=== PATIENT | male | born 1955 | race Caucasian/White ===

== ENCOUNTER 2016-09-21 11:47 | Inpatient (IN) | payer OTHER ==
[2016-09-21] MEDS ORDERED: MIDAZOLAM 5 MG/5 ML VIAL ONE (12:21)
[2016-09-21] MEDS ORDERED: NS 1,000 ML IV ONE (12:21)
[2016-09-21] MEDS ORDERED: ONDANSETRON HCL 4 MG/2 ML VIAL ONE (12:21)
[2016-09-21] MEDS ORDERED: FENTANYL 100 MCG/2 ML VIAL ONE (12:21)
[2016-09-21] MEDS ORDERED: PANTOPRAZOLE 40 MG VIAL IV ONE (15:00)
[2016-09-21] MEDS ORDERED: PANTOPRAZOLE SODIUM 40 MG in NS 100 ML IV SCH (15:00)
--- NOTE | 2016-09-21 15:44 | HIMOPRPT ---
DATE OF PROCEDURE: 09/21/16 PROCEDURE: EGD with biopsies INDICATIONS: 1. Nausea vomiting. 2. Weight loss. 3. CT scan of the abdomen showing significant gastric distention CONSENT: The benefits, risks, and alternatives to the procedure were discussed. The risks of bleeding, perforation and aspiration were discussed at less than 1% . Informed consent was obtained from the patient. MEDICATIONS: Fentanyl 100 mcg, Versed 10 mg, and Zofran 4 mg adjunct to sedation. DESCRIPTION OF PROCEDURE: The patient was placed in the left lateral position. The Olympus video endoscope GIFH-180 was passed with ease under direct visualization to the antrum The esophagus, stomach were examined on insertion and withdrawal of the scope. At least two passes were made. Duodenal could not be intubated. There was significant retained food and secretions in the stomach limiting the examination FINDINGS: ESOPHAGUS: Moderate circumferential esophagitis in the distal 1/3 of the esophagus inform of superficial ulcerations and erosions. Photo documentation obtained STOMACH: Significant dilatation with significant retained food and secretions limiting the examination. There were no obvious masses noted. The examination of the antrum was also limited. We were able to obtain 2 biopsies from the antrum and sent for histopathologic examination. The patient did throw up significantly during and after the test. DUODENUM: Could not be evaluated IMPRESSION: 1. Gastric outlet obstruction ?? Etiology 2. Moderate esophagitis likely related to gastric outlet obstruction PLAN: 1. Follow biopsies. I have explained the limitations of the above endoscopy and biopsies to the patient and patient's family. 2. Admit 3. IV fluids, IV Protonix, surgical consultation- I have called Dr. Aleman who has reviewed the CT scan as well. I do not believe that the above is amenable to endoscopic therapy. 4. I have also discussed above with Dr. Jenkins who was kind enough to accept the admission. cc Dr Camargo
[2016-09-21] MEDS ORDERED: BENZONATATE 100 MG PERLES PO PRN (16:15)
[2016-09-21] MEDS ORDERED: PROMETHAZINE 25 MG/ML VIAL IV PRN (16:15)
[2016-09-21] MEDS ORDERED: ACETAMINOPHEN 650 MG SUPP PR PRN (16:15)
--- NOTE | 2016-09-21 16:15 | HISTPHYS ---
- Chief Complaint nausea and vomiting, gastric outlet obstruction - History of Present Illness Mr. todd is a 60-year-old white male with history of hypertension and hyperlipidemia who is admitted from the endoscopy suite with a gastric outlet obstruction. He says his symptoms started approximately 2-3 months ago with early satiety and increasing nausea and vomiting. They have progressively worsened. They became acutely worse the last several days. His states that he has not been able to sleep for several days. He sits up leaning over a table constantly nauseous and belching. Initially thought it was reflux related but he has not gotten any relief with antacids and PPIs. He underwent endoscopy today and has had removal of approximately 2 L of gastric contents. He was found to have a severe gastric outlet obstruction of unclear etiology. Dr. Jimenez has asked us to admit him to the hospital for NG tube placement, IV fluids, and surgical consultation - Medical History Cardiac History: Reports: Hypertension, Hypercholesterolemia Respiratory History: Reports: No Significant History GI/ History: Reports: Gastroesophageal Reflux Musculoskeletal History: Reports: No Significant History Systemic History: Reports: No Significant History Neurological History: Reports: No Significant History Psychological History: Reports: No Significant History - Medictions/Allergies Allergies No Known Allergies Allergy (Verified 09/21/16 12:10) Current Medication List: Reviewed Home Medications Lisinopril 5 mg PO DAILY 09/21/16 Rosuvastatin Calcium [Crestor] 5 mg PO DAILY 09/21/16 - Family History Reports: Other (old age/longevity) - Social History Travel Outside of [place] in the Last 3 Months?: No Lives: with Spouse Smoking Status: Heavy tobacco smoker (5 or more cigarettes/day or daily pipe/ cigar) Social History: Denies: Alcohol Use - Review of Systems Yes All systems reviewed and were negative except as marked Constitutional: Loss of Appetite, Weakness - Eyes No Symptoms Reported - Ears No Symptoms Reported. negative: Drainage, Hearing Loss, Pain - Nose No Symptoms Reported. negative: Abrasion, Bleeding, Congestion - Mouth Mouth: No Symptoms Reported. negative: Pain, Drooling, Denture - Throat/Neck Pain (from ng tube). negative: Swelling - Respiratory No Symptoms Reported. negative: Cough, Shortness of Breath, Wheezing - Cardiovascular No Symptoms Reported. negative: Chest Pain, Orthopnea, Palpitations - Gastrointestinal Gastrointestinal: Nausea, Vomiting, Abdominal Pain. negative: Diarrhea, Melena , Hematochezia - Genitourinary Genitourinary: No Symptoms Reported. negative: Bleeding, Dysuria, Discharge - Neurological No Symptoms Reported. negative: Dizziness, Gait Difficulty, Seizure, Speech Difficulty - Musculoskeletal Musculoskeletal:: No Symptoms Reported. negative: Chronic low back pain, Stiffness, Gout, Weakness - Integumentary No Symptoms Reported. negative: Bruising, Rash, Wound - Allergic/Immunologic No Symptoms Reported. negative: Hives, Itching - Hematologic No Symptoms Reported. negative: Lymphadenopathy, Easy Bruising, Anemia, Past Transfusions - Endocrine No Symptoms Reported. negative: Weight Gain, Weight Loss - Psychiatric No Symptoms Reported. negative: Anxiety, Depression - Physical Exam Constitutional: No apparent distress, Alert, Well nourished, Well appearing Oriented to: Time, Person, Place Exam: Last Vital Signs Temp 97.7 F 09/21/16 12:19 Pulse 76 09/21/16 15:12 Resp 16 09/21/16 15:12 BP 130/64 09/21/16 15:12 Pulse Ox 100 09/21/16 15:12 Intake & Output 09/21/16 09/21/16 09/21/16 07:59 15:59 23:59 Patient's weight 94.801 kg - HEENT Head: Normal Eye: Normal Oropharynx: Normal - Respiratory/Cardiovascular Respiratory: Normal - CTA Cardiovascular: Normal - GI Auscultation: Absent Palpation: Normal Tenderness: Non tender - Musculoskeletal Back: Normal. negative: Abrasion, Ecchymosis Extremities: Normal. negative: Calf Tenderness, Clubbing - Integumentary Skin: Warm, Dry Lymphatics: Normal. negative: Adenopathy, Inguinal Erythema - Neurologic Memory Impaired: Normal Motor Function: Normal Cranial Nerve: Normal Cerebellar: Normal Mood Description: Normal Thought: Coherent Perception: Normal - Focused CV Perfusion Exam Vital Signs: Last Vital Signs Temp 97.7 F 09/21/16 12:19 Pulse 76 09/21/16 15:12 Resp 16 09/21/16 15:12 BP 130/64 09/21/16 15:12 Pulse Ox 100 09/21/16 15:12 - Assessment (1) Gastric outlet obstruction K31.1 - ADULT HYPERTROPHIC PYLORIC STENOSIS Acute Present on Admission: Yes (2) Nausea and vomiting R11.2 - NAUSEA WITH VOMITING, UNSPECIFIED Acute Present on Admission: Yes (3) Hypertension I10 - ESSENTIAL (PRIMARY) HYPERTENSION Acute Present on Admission: Yes (4) Hyperlipidemia E78.5 - HYPERLIPIDEMIA, UNSPECIFIED Acute Present on Admission: Yes - Plan Unable to edit problem list above due to computer malfunction. Plan 1. Admit to medical floor. 2. IV fluids and supportive care. 3. NG tube to continuous low wall suction. 4. Anti emetics. 5. IV hydralazine for blood pressure issues. 6. IV morphine for pain control 7. Surgical consultation with Dr. Aleman Case Care Discussed with: Patient, Consultants, Family, Nursing Staff, Physical Therapy, Resource Management, Teaching Dietitian
[2016-09-21] MEDS ORDERED: hydrALAZINE 20 MG/ML VIAL IV PRN (16:21)
[2016-09-21] MEDS ORDERED: Chloraseptic 6 OZ BOT PO PRN (16:24)
[2016-09-21] MEDS ORDERED: Vaccine Screening Complete SCH (17:00)
[2016-09-21 17:07] LABS: AUTOMATED BASOPHIL 0.4 % (0-2); AUTOMATED EOSINOPHIL 0.9 % (0-5); AUTOMATED LYMPH 19.4 % (17-44); AUTOMATED MONOCYTE 7.1 % (3-10); AUTOMATED NEUTROPHIL 72.2 % (45-76); MPV 10.1 fL (7.4-10.4)
[2016-09-21 17:33] LABS: BLOOD UREA NITROGEN 21 MG/DL (9-20); CALC CORRECTED 9.8 MG/DL (8.4-10.2); CALCIUM 9.6 MG/DL (8.4-10.2); CALCULATED OSMOLALITY 274 MOs/Kg (270-290); CHLORIDE 98 mEq/L (98-107); GLUCOSE 93 MG/DL (70-99); SODIUM LEVEL 141 mEq/L (137-146); TOTAL PROTEIN 7.1 G/DL (6.3-8.2)
[2016-09-21] MEDS: ENOXAPARIN 40 MG/0.4 ML PFS SQ SCH (18:08)
[2016-09-21] MEDS: NICOTINE 21 MG PATCH TOP SCH (18:09)
--- NOTE | 2016-09-21 18:26 | HISTPHYS ---
- Chief Complaint N/V - History of Present Illness 60 YO WM with history of N/V. He has had about a 16 lb weight loss in the past 2 months. Food does not agree with him and he has been having severe reflux and indigestion. No Hematemesis. He had colonoscopy in June. Had a CT which showed a grossly distended stomach. consistent with GOO. He had EGD but the pylorus was not well visualized. The po contrast however, was seen in the transverse colon. Denies fevers or chills. He did test positive for H pylori and has been treated for this. He was admitted and had NGT placed. He has had over 6 L of output today not tomention the large amount of emesis that he has had. - Medical History Cardiac History: Reports: No Significant History, Hypertension, Hypercholesterolemia Respiratory History: Reports: No Significant History GI/ History: Reports: No Significant History, Gastroesophageal Reflux Musculoskeletal History: Reports: No Significant History Systemic History: Reports: No Significant History Neurological History: Reports: No Significant History Psychological History: Reports: No Significant History. Denies: Alcoholism - Surgical History Reports: No Significant History - Medictions/Allergies Allergies No Known Allergies Allergy (Verified 09/21/16 12:10) Home Medications Lisinopril 5 mg PO DAILY 09/21/16 Rosuvastatin Calcium [Crestor] 5 mg PO DAILY 09/21/16 - Family History Reports: No Significant History, Other (old age/longevity) - Social History Travel Outside of [place] in the Last 3 Months?: No Lives: with Spouse Smoking Status: Heavy tobacco smoker (5 or more cigarettes/day or daily pipe/ cigar) Social History: Denies: Alcohol Use - Review of Systems Constitutional: Loss of Appetite, Weight loss. negative: Chills, Fever Eyes: negative: Double Vision, Pain, Photophobia Ears: negative: Hearing Loss, Tinnitus Nose: negative: Discharge, Ecchymosis Respiratory: negative: Shortness of Breath, Wheezing Cardiovascular: negative: Chest Pain, Orthopnea, Palpitations Gastrointestinal: Nausea, Vomiting, Abdominal Pain, Heartburn. negative: Melena , Hematochezia Genitourinary: negative: Bleeding, Dysuria, Frequency Neurological: negative: Headache, Seizure Musculoskeletal:: negative: Chronic low back pain, Arthritis, Muscle Pain, Joint Swelling Allergic/Immunologic: negative: Hives, Itching Hematologic: negative: Easy Bruising, Easy Bleeding Endocrine: Weight Loss, Excessive Thirst - Physical Exam Vital Signs: Initial Vitals Temperature 97.7 F 09/21/16 12:19 Pulse Rate 98 09/21/16 12:19 Respiratory Rate 18 09/21/16 12:19 Blood Pressure 132/84 09/21/16 12:19 Pulse Oxygen Saturation 94 09/21/16 12:19 Constitutional: No apparent distress, Alert Oriented to: Time, Person, Place - HEENT Head: Normal. negative: Laceration, Swelling Tympanic Membrane: negative: Perforated Respiratory: Normal - CTA. negative: Rales, Retractions, Rhonchi, Wheezes Cardiovascular: Normal. negative: Irregular, Diastolic murmur, Systolic murmur - GI Auscultation: Normal. negative: Bruit Palpation: negative: Enlarged liver, Enlarged spleen Tenderness: negative: Guarding, Rebound Wade's Sign: Negative - Musculoskeletal Back: negative: Ecchymosis, CVA Tenderness - Lab Results Laboratory Results - last 24 hr 09/21/16 09/21/16 16:50 16:50 WBC 11.3 H RBC 5.13 Hgb 15.6 Hct 47.1 MCV 92 MCH 30.4 MCHC 33.1 RDW 13.3 Plt Count 144 MPV 10.1 Neut % (Auto) 72.2 Lymph % (Auto) 19.4 [place] % (Auto) 7.1 Eos % (Auto) 0.9 Baso % (Auto) 0.4 Absolute Neuts (auto) 8.14 Absolute Lymphs (auto) 2.15 Sodium 141 Potassium 4.3 Chloride 98 Carbon Dioxide 32 Anion Gap 15 BUN 21 H Creatinine 1.10 Estimated GFR (MDRD) > 60 Glucose 93 Calculated Osmolality 274 Calcium 9.6 Corrected Calcium 9.8 Total Bilirubin 0.9 AST 17 ALT 31 Alkaline Phosphatase 92 Total Protein 7.1 Albumin 3.8 - Assessment/Plan (1) Nausea and vomiting R11.2 - NAUSEA WITH VOMITING, UNSPECIFIED Acute Present on Admission: Yes (2) Gastric outlet obstruction K31.1 - ADULT HYPERTROPHIC PYLORIC STENOSIS Acute Present on Admission: Yes (3) Hyperlipidemia E78.5 - HYPERLIPIDEMIA, UNSPECIFIED Chronic Present on Admission: Yes (4) Hypertension I10 - ESSENTIAL (PRIMARY) HYPERTENSION Acute Present on Admission: Yes Plan: Will need gastric decompression. IVF. Will discuss with GI further as he may need to have repeat EGD once stomach is completely empty. He will likely need surgical intervention. However, will need to completely rule out malignancy, lymphoma, chronic inflammation, PUD disease etc.
[2016-09-21] MEDS: NS/KCl 20 mEq 1,000 ML IV SCH (21:48)
[2016-09-22] MEDS: NS/KCl 20 mEq 1,000 ML IV SCH ×4 (02:14→18:37)
[2016-09-22] MEDS: PANTOPRAZOLE 40 MG VIAL IV SCH ×2 (05:00→18:37)
[2016-09-22 05:43] LABS: AUTOMATED BASOPHIL 0.5 % (0-2); AUTOMATED EOSINOPHIL 3.1 % (0-5); AUTOMATED LYMPH 20.8 % (17-44); AUTOMATED NEUTROPHIL 68.6 % (45-76); MPV 10.5 fL (7.4-10.4)
[2016-09-22 06:12] LABS: BLOOD UREA NITROGEN 21 MG/DL (9-20); CALC CORRECTED 9.3 MG/DL (8.4-10.2); CALCULATED OSMOLALITY 269 MOs/Kg (270-290); CHLORIDE 105 mEq/L (98-107); GLUCOSE 96 MG/DL (70-99); SODIUM LEVEL 138 mEq/L (137-146); TOTAL PROTEIN 6.8 G/DL (6.3-8.2)
[2016-09-22] MEDS ORDERED: PROPOFOL 200 MG/20 ML VIAL IV ONE (10:00)
[2016-09-22] MEDS ORDERED: LIDOCAINE 100 MG PFS IV ONE (10:00)
[2016-09-22] MEDS ORDERED: ONDANSETRON HCL 4 MG/2 ML VIAL IV ONE (10:00)
--- NOTE | 2016-09-22 15:32 | PCM.SURGRO ---
- Subjective Patient: Reports: Nausea. Denies: Vomiting - Objective / Physical Exam Vital Signs: Temperature: 97.8 F (09/22/16 12:30) HR: 68 (09/22/16 15:13)RR: 18 (09/22/16 15: 13) BP: 159/79 (09/22/16 15:13)Pulse Ox: 96 (09/22/16 15:13) General: Alert, Oriented x3, Cooperative HEENT: Normal, Anicteric Sclera Respiratory: Normal - CTA Cardiovascular: Regular rate and rhythm Gastrointestinal: Soft. negative: Distended, Tender Extremities: negative: Tenderness, Clubbing, Cyanosis Laboratory/Diagnostics Reviewed: 09/22/16 05:30 09/22/16 05:30 Laboratory Results - last 24 hr 09/21/16 09/21/16 09/22/16 16:50 16:50 05:30 WBC 11.3 H RBC 5.13 Hgb 15.6 Hct 47.1 MCV 92 MCH 30.4 MCHC 33.1 RDW 13.3 Plt Count 144 MPV 10.1 Neut % (Auto) 72.2 Lymph % (Auto) 19.4 [place] % (Auto) 7.1 Eos % (Auto) 0.9 Baso % (Auto) 0.4 Absolute Neuts (auto) 8.14 Absolute Lymphs (auto) 2.15 Sodium 141 138 Potassium 4.3 4.2 Chloride 98 105 Carbon Dioxide 32 24 Anion Gap 15 13 BUN 21 H 21 H Creatinine 1.10 1.10 Estimated GFR (MDRD) > 60 > 60 Glucose 93 96 Calculated Osmolality 274 269 L Calcium 9.6 9.0 Corrected Calcium 9.8 9.3 Total Bilirubin 0.9 1.0 AST 17 18 ALT 31 25 Alkaline Phosphatase 92 86 Total Protein 7.1 6.8 Albumin 3.8 3.7 Lipase 55 09/22/16 05:30 WBC 9.0 RBC 4.71 Hgb 14.5 Hct 42.9 MCV 91 MCH 30.8 MCHC 33.8 RDW 13.3 Plt Count 144 MPV 10.5 H Neut % (Auto) 68.6 Lymph % (Auto) 20.8 [place] % (Auto) 7.0 Eos % (Auto) 3.1 Baso % (Auto) 0.5 Absolute Neuts (auto) 6.12 Absolute Lymphs (auto) 1.80 Sodium Potassium Chloride Carbon Dioxide Anion Gap BUN Creatinine Estimated GFR (MDRD) Glucose Calculated Osmolality Calcium Corrected Calcium Total Bilirubin AST ALT Alkaline Phosphatase Total Protein Albumin Lipase - Assessment and Plan (1) Nausea and vomiting Acute R11.2 - NAUSEA WITH VOMITING, UNSPECIFIED Present on Admission: Yes (2) Gastric outlet obstruction Acute K31.1 - ADULT HYPERTROPHIC PYLORIC STENOSIS Present on Admission: Yes (3) Hyperlipidemia Chronic E78.5 - HYPERLIPIDEMIA, UNSPECIFIED Present on Admission: Yes (4) Hypertension Acute I10 - ESSENTIAL (PRIMARY) HYPERTENSION Present on Admission: Yes Plan: EGD done today. More biopsies taken. Will need to wait until path is back to decide further treatment.
--- NOTE | 2016-09-22 17:14 | SC.ANESPOS ---
Post-Anesthesia Note LOC: Fully Awake Post-Anesthesia Assessment: Awake, Returned to Baseline, Hemodynamically Stable , Pain Control Adequate Phase I & II Recovery Complete: Yes Apparent Anesthesia Complication: No : N - Vital Signs Blood Pressure: 159/79 Pulse: 68 Resp Rate: 18 O2 Sat: 96 Temp: 97.8 F
--- NOTE | 2016-09-22 17:14 | HIM.ANES ---
Anesthesia Evaluation & Plan Diagnoses: EPIGASTRIC PAIN (09/21/16) ABNORMAL WEIGHT LOSS (09/21/16) ABNORMAL FINDINGS ON DX IMAGING OF PRT DIGESTIVE TRACT (09/21/16) Consented Procedure: EGD Surgeon:: Marcos Jimenez - Focused Review of Systems Cardiac History: Yes: Hx Hypertension HEENT: Yes: Hx Hearing Impairment (sore throat) Respiratory: Yes: Hx Snoring Gastrointestinal: Yes: Hx Colonoscopy (06/2016) Neurological/Musculoskeletal: No: Hx Neurological Disorders Psychological: No Hx Mental/Emotional Disorders Smoking Status: Heavy tobacco smoker (5 or more cigarettes/day or daily pipe/ cigar) Past Social History: Denies: Alcohol Use - Focused Physical Exam NPO since: after Midnight Neck: Full Range of Motion Cardiovascular/Chest: Normal (RRR no mumurs or rubs.) Respiratory: Lungs clear. negative: Rhonchi, Wheezing Any problems with anesthesia, including nausea and vomiting?: No Other: Problem List Problem Status Onset Gastric outlet obstruction Acute Hypertension Acute Nausea and vomiting Acute Hyperlipidemia Chronic CBC/BMP/Other 09/22/16 05:30 09/22/16 05:30 Allergies Allergy/AdvReac Type Severity Reaction Status Date / Time No Known Allergies Allergy Verified 09/21/16 12:10 Home Medications Medication Instructions Recorded Last Taken Type Lisinopril/Hydrochlorothiazide 1 tab PO DAILY 09/21/16 09/20/16 History [Lisinopril-Hctz 10-12.5 mg Tab] Height and Weight Patient's height 5 ft 1 in Patient's weight 95.424 kg Weight (Calculated Kilograms) 95.424 BMI 39.7 Vital Signs Temperature 97.8 F 09/22/16 12:30 Pulse Rate 68 09/22/16 15:13 Respiratory Rate 18 09/22/16 15:13 Blood Pressure 159/79 09/22/16 15:13 Pulse Oxygen Saturation 96 09/22/16 15:13 METS - Level of Activity: Eating, Dressing, walking around house, dishwashing - Anesthetic Plan Anesthesia Type: General ASA Class: 2 -: I have examined this patient and reviewed the medical record. The patient has been assessed prior to anesthesia. Risks and benefits of anesthesia and anesthetic technique options have been discussed and all questions answered. The patient accepts the risk and desires me to proceed with the planned anesthetic.
--- NOTE | 2016-09-22 17:33 | HIMOPRPT ---
DATE OF PROCEDURE: 09/22/16 PROCEDURE: EGD with biopsies INDICATIONS: 1. Second-look endoscopy. 2. Patient had attempted EGD performed yesterday but had significant food in the stomach and had significant gastric outlet obstruction CONSENT: The benefits, risks, and alternatives to the procedure were discussed. The risks of bleeding, perforation and aspiration were discussed at less than 1% . Informed consent was obtained from the patient. MEDICATIONS: Propofol per Anesthesia DESCRIPTION OF PROCEDURE: The patient was placed in the left lateral position. The Olympus video endoscope GIFH-180 was passed with ease under direct visualization to the second portion of the stomach. The esophagus, stomach were examined on insertion and withdrawal of the scope. At least two passes were made. Duodenal could not be intubated FINDINGS: ESOPHAGUS: Moderate esophagitis involving lower 1/3 of the esophagus inform of circumferential ulcers/erosions STOMACH: Still significant food in the stomach which would limit the examination. The stomach was distended. The pylorus could not be intubated. There were no obvious masses. There was evidence of some mucosal abnormalities in the antrum inform of erythema and mucosal thickening ? Importance. Multiple Jumbo biopsies were obtained and sent for histopathologic examination. The pylorus was "pinpoint" and would not allow passage of gif H180 (luminal diameter of 9.8 mm). DUODENUM: Could not be intubated IMPRESSION: 1. Significant gastric outlet obstruction with mucosal abnormalities. No obvious exophytic masses. 2. Moderate esophagitis likely related to 1. 3. Retained food in the stomach despite of NG tube PLAN: 1. Follow biopsies. These biopsies could be suggestive of lymphoma. The endoscopic ultrasound is not available here in [facility]. If it needs to be done in future, we would send him to [facility]. 2. Continue Protonix IV 3. I have discussed the above in detail with Dr. Aleman and with patient's . I have also given them endoscopic pictures. 4. Replace NG tube
[2016-09-22] MEDS ORDERED: SIMETHICONE 80 MG TAB PO PRN (17:46)
[2016-09-22] MEDS: NICOTINE 21 MG PATCH TOP SCH (18:37)
[2016-09-22] MEDS: Metronidazole 500 mg/100 ml 500 MG/100 ML RTU IV SCH (18:37)
[2016-09-22] MEDS: ENOXAPARIN 40 MG/0.4 ML PFS SQ SCH (18:38)
--- NOTE | 2016-09-22 20:01 | GENMEDPROG ---
Chief Complaint: Less abdominal pain since NG placed and evacuation of stomach contents. Notes Reviewed: Yes Events from last night noted and discussed with Clinical Staff Current Medication List: Reviewed Currently: Reports: Tobacco Use/Hx (Smokes a half pack cigarettes a day) DVT Prophylaxis: Yes - Physical Examination Vital Signs and I&O: Last Vital Signs Temp 97.8 F 09/22/16 17:14 Pulse 68 09/22/16 17:14 Resp 18 09/22/16 17:14 BP 159/79 09/22/16 17:14 Pulse Ox 96 09/22/16 17:14 Oxygen Pulse Oxygen Saturation 96 O2 Device Room Air Oxygen Flow Rate 2 Fraction of Inspired Oxygen ( FIO2) Intake & Output 09/19/16 09/20/16 09/21/16 09/22/16 23:59 23:59 23:59 23:59 Intake Total 81 1328 Output Total 50 25 Balance 31 1303 Patient's weight 93.803 kg 95.424 kg General: Alert, Oriented x3, Cooperative HEENT: Normal, Anicteric Sclera Neck: Non-tender, Full range of motion, Normal Trachea alignment, Normal inspection (No cervical lymphadenopathy. No supraclavicular lymphadenopathy.), No Masses palpable, Supple Lymphatics: Normal (No lymph node swelling or pain.) Respiratory: Normal - CTA Cardiovascular: Regular rate and rhythm, Normal S1, No Gallops,Rubs/Murmurs, Normal S2 GI: Soft, No hepatospenomegaly, No masses, Tenderness (Mild diffuse tenderness) Extremities/Musculoskeletal: negative: Tenderness, Swelling, Edema, Clubbing, Cyanosis Skin: Warm,Dry and Intact, No rashes, No significant lesion Neurological: Strength at 5/5 X4 ext (Motor 5/5 throughout.), Normal tone, Cranial nerves 3-12 NL ( 2-12 grossly intact.) Psych/Mental Status: Appropriate, Normal Affect Lab/DI/Studies Reviewed: 09/22/16 05:30 09/22/16 05:30 Laboratory Results - last 24 hr 09/22/16 09/22/16 05:30 05:30 WBC 9.0 RBC 4.71 Hgb 14.5 Hct 42.9 MCV 91 MCH 30.8 MCHC 33.8 RDW 13.3 Plt Count 144 MPV 10.5 H Neut % (Auto) 68.6 Lymph % (Auto) 20.8 [place] % (Auto) 7.0 Eos % (Auto) 3.1 Baso % (Auto) 0.5 Absolute Neuts (auto) 6.12 Absolute Lymphs (auto) 1.80 Sodium 138 Potassium 4.2 Chloride 105 Carbon Dioxide 24 Anion Gap 13 BUN 21 H Creatinine 1.10 Estimated GFR (MDRD) > 60 Glucose 96 Calculated Osmolality 269 L Calcium 9.0 Corrected Calcium 9.3 Total Bilirubin 1.0 AST 18 ALT 25 Alkaline Phosphatase 86 Total Protein 6.8 Albumin 3.7 Lipase 55 - Assessment (1) Gastric outlet obstruction Acute K31.1 - ADULT HYPERTROPHIC PYLORIC STENOSIS Comment/Plan: EGD suggested hypertrophic pyloric stenosis. Biopsies taken and await the results. NG tube placed and feeling better with much less pain. (2) Hypertension Chronic I10 - ESSENTIAL (PRIMARY) HYPERTENSION Qualifiers: Hypertension type: essential hypertension Qualified Code(s): I10 - Essential (primary) hypertension Comment/Plan: Continuation of previous medications for hypertension. (3) Nausea and vomiting Acute R11.2 - NAUSEA WITH VOMITING, UNSPECIFIED Qualifiers: Vomiting type: unspecified Vomiting Intractability: non-intractable Qualified Code(s): R11.2 - Nausea with vomiting, unspecified (4) Hyperlipidemia Chronic E78.5 - HYPERLIPIDEMIA, UNSPECIFIED Qualifiers: Hyperlipidemia type: mixed hyperlipidemia Qualified Code(s): E78.2 - Mixed hyperlipidemia (5) Tobacco abuse Chronic Z72.0 - TOBACCO USE Comment/Plan: Discussion on cessation has taken place and will start on nicotine patch. Case Care Discussed with: Patient, Nursing Staff, Resource Management Education/Counseling Given To: Patient, Family Member Education/Counseling Given Regarding: Diagnosis, Treatment Total Time: 39 min Critical Care: No Code: 79001 (12+)
[2016-09-22] MEDS: PIPERACILLIN AND TAZOBACTAM 3.375 GM in D5W 100 ML IV SCH (20:11)
[2016-09-23] MEDS: NS/KCl 20 mEq 1,000 ML IV SCH ×4 (01:08→18:36)
[2016-09-23] MEDS: Metronidazole 500 mg/100 ml 500 MG/100 ML RTU IV SCH ×4 (01:09→18:34)
[2016-09-23] MEDS: PIPERACILLIN AND TAZOBACTAM 3.375 GM in D5W 100 ML IV SCH ×4 (03:06→21:00)
[2016-09-23] MEDS: PANTOPRAZOLE 40 MG VIAL IV SCH ×2 (03:06→17:40)
[2016-09-23] MEDS: HYDROCHLOROTHIAZIDE 12.5 MG CAP PO SCH (08:39)
[2016-09-23] MEDS: LISINOPRIL 10 MG TAB PO SCH (08:39)
[2016-09-23] MEDS ORDERED: Non-Formulary Medication ITEM (Lisinopril/Hydrochlorothiazide [Lisinopril-Hctz 10-12.5 M PO SCH (09:00)
--- NOTE | 2016-09-23 09:58 | GENMEDPROG ---
Chief Complaint: passing gas no bm ng drainage minimal 25 cc prev 24h Notes Reviewed: Yes Events from last night noted and discussed with Clinical Staff Current Medication List: Reviewed Currently: Reports: Tobacco Use/Hx (Smokes a half pack cigarettes a day) DVT Prophylaxis: Yes - Physical Examination Vital Signs and I&O: Last Vital Signs Temp 98.2 F 09/23/16 07:20 Pulse 64 09/23/16 07:20 Resp 18 09/23/16 07:20 BP 126/73 09/23/16 07:20 Pulse Ox 96 09/23/16 07:20 Oxygen Pulse Oxygen Saturation 96 O2 Device Room Air Oxygen Flow Rate 2 Fraction of Inspired Oxygen ( FIO2) Intake & Output 09/20/16 09/21/16 09/22/16 09/23/16 23:59 23:59 23:59 23:59 Intake Total 81 1448 1223 Output Total 50 625 Balance 31 823 1223 Patient's weight 93.803 kg 95.51 kg 95.481 kg General: Alert, Oriented x3, Cooperative HEENT: Normal, Anicteric Sclera Neck: Non-tender, Full range of motion, Normal Trachea alignment, Normal inspection (No cervical lymphadenopathy. No supraclavicular lymphadenopathy.), No Masses palpable, Supple Lymphatics: Normal (No lymph node swelling or pain.) Respiratory: Normal - CTA Cardiovascular: Regular rate and rhythm, Normal S1, No Gallops,Rubs/Murmurs, Normal S2 GI: Soft, No hepatospenomegaly, No masses, Tenderness (Mild diffuse tenderness) Extremities/Musculoskeletal: negative: Tenderness, Swelling, Edema, Clubbing, Cyanosis Skin: Warm,Dry and Intact, No rashes, No significant lesion Neurological: Strength at 5/5 X4 ext (Motor 5/5 throughout.), Normal tone, Cranial nerves 3-12 NL ( 2-12 grossly intact.) Psych/Mental Status: Appropriate, Normal Affect Lab/DI/Studies Reviewed: 09/22/16 05:30 09/22/16 05:30 - Assessment (1) Gastric outlet obstruction Acute K31.1 - ADULT HYPERTROPHIC PYLORIC STENOSIS Comment/Plan: EGD suggested hypertrophic pyloric stenosis. Biopsies taken show no evidence of lymphoproliferative disease. NG tube placed and feeling better with much less pain. Dr. Aleman has placed a PICC line so we can provide TPN for patient's nutrition given his hyper trophic pyloric stenosis. (2) Hypertension Chronic I10 - ESSENTIAL (PRIMARY) HYPERTENSION Qualifiers: Hypertension type: essential hypertension Qualified Code(s): I10 - Essential (primary) hypertension Comment/Plan: Continuation of previous medications for hypertension. (3) Hyperlipidemia Chronic E78.5 - HYPERLIPIDEMIA, UNSPECIFIED Qualifiers: Hyperlipidemia type: mixed hyperlipidemia Qualified Code(s): E78.2 - Mixed hyperlipidemia (4) Tobacco abuse Chronic Z72.0 - TOBACCO USE Comment/Plan: Discussion on cessation has taken place and will start on nicotine patch. (5) Nausea and vomiting Acute R11.2 - NAUSEA WITH VOMITING, UNSPECIFIED Qualifiers: Vomiting type: unspecified Vomiting Intractability: non-intractable Qualified Code(s): R11.2 - Nausea with vomiting, unspecified Case Care Discussed with: Patient, Nursing Staff, Resource Management Education/Counseling Given To: Patient Education/Counseling Given Regarding: Diagnosis Total Time: 36 min and greater than 10 minute spent on smoking cessation discussion Critical Care: No Code: 95204 (12+)
[2016-09-23] MEDS ORDERED: LIDOCAINE 1% 30 ML VIAL (PRESERVATIVE FREE) ONE (14:44)
--- NOTE | 2016-09-23 15:17 | HIMOPRPT ---
PROCEDURE: DATE OF PROCEDURE: 09/23/16 PREOPERATIVE DIAGNOSIS: Poor venous access POSTOPERATIVE DIAGNOSIS: Poor venous access PROCEDURE: Placement of Right basilic vein double lumen PICC line catheter using ultrasound guidance, catheter length 35cm SURGEON: Rohan Aleman MD. ANESTHESIA: 1% lidocaine. COMPLICATIONS: None. ESTIMATED BLOOD LOSS: Minimal. DESCRIPTION OF PROCEDURE IN DETAIL: The patient was placed supine on his hospital bed. The patient was prepped and draped in usual fashion. Using ultrasound guidance, we were able to see the right basilic vein without any difficulty. This was easily compressible. We went ahead and infiltrated the skin and subcutaneous tissue, placed a needle directly into the vein under ultrasound guidance. Images were obtained. We passed the guidewire through it and removed the needle. We placed a dilator and sheath over the guidewire. We had measured and cut the catheter to length. Then placed the catheter through the sheath and removed the sheath leaving the catheter in place. The catheter tip was in the superior vena cava. This was easily aspirated and then flushed with saline. This was sutured to the skin. The patient tolerated this well.
--- NOTE | 2016-09-23 15:20 | PCM.SURGRO ---
- Subjective Patient: Reports: No new complaints, Feels better - Objective / Physical Exam Vital Signs: Temperature: 98.2 F (09/23/16 07:20) HR: 64 (09/23/16 07:20)RR: 18 (09/23/16 07: 20) BP: 126/73 (09/23/16 07:20)Pulse Ox: 96 (09/23/16 07:20) General: Alert, Oriented x3, Cooperative Cardiovascular: Regular rate and rhythm, No Gallops,Rubs/Murmurs Gastrointestinal: Soft. negative: Distended, Tender Back: Normal. negative: Ecchymosis, CVA Tenderness Extremities: negative: Tenderness, Swelling, Edema Psych/Mental Status: Appropriate, Normal Affect, Cooperative Skin: Warm,Dry and Intact, No rashes Laboratory/Diagnostics Reviewed: 09/22/16 05:30 09/22/16 05:30 - Assessment and Plan (1) Nausea and vomiting Acute R11.2 - NAUSEA WITH VOMITING, UNSPECIFIED Present on Admission: Yes unspecified non-intractable R11.2 - Nausea with vomiting, unspecified (2) Gastric outlet obstruction Acute K31.1 - ADULT HYPERTROPHIC PYLORIC STENOSIS Present on Admission: Yes (3) Hyperlipidemia Chronic E78.5 - HYPERLIPIDEMIA, UNSPECIFIED Present on Admission: Yes mixed hyperlipidemia E78.2 - Mixed hyperlipidemia (4) Hypertension Chronic I10 - ESSENTIAL (PRIMARY) HYPERTENSION Present on Admission: Yes essential hypertension I10 - Essential (primary) hypertension Plan: Patient had PICC line placed so that we could start JUDY. Path results from first set of biopsies was discussed with him and . Will need to wait until second set of biopsies available. Continue with NGT decompression as this will help decrease gastric distension and edema.
[2016-09-23] MEDS ORDERED: CHLORHEXIDINE (HIBICLENS) 4 OZ BOTTLE TOP ONE (16:30)
--- NOTE | 2016-09-23 16:59 | PCM.GIPROG ---
Progress Note (GI) Chief Complaint: Patient feels much better. He denies having any significant abdominal pain. The NG tube is still in. He had a PICC line placed. His bili is much softer. - Physical Exam Vital Signs: Temperature: 98.2 F (09/23/16 07:20) HR: 64 (09/23/16 07:20) RR: 18 (09/23/16 07:20) BP: 126/73 (09/23/16 07:20) Pulse Ox: 96 (09/23/16 07:20) General: Alert, Oriented x3, Cooperative, No acute distress HEENT: Normal, Other (No Jaundice). negative: Pallor Cardiovascular: Normal S1, Normal S2, Other (No S3 or S4.). negative: No murmurs Gastrointestinal: Soft, Bowel Sounds (Normal), Other (No ascites.). negative: Tender, Hepatosplenomegaly Extremities: Normal pulses. negative: Swelling, Edema Skin: Warm,Dry and Intact Neurological: Normal speech, Other (No focal neurologic deficits.) Psych/Mental Status: Normal Affect, Cooperative Result Diagrams: 09/22/16 05:30 09/22/16 05:30 - Impression and Plan (1) Gastric outlet obstruction Acute K31.1 - ADULT HYPERTROPHIC PYLORIC STENOSIS Present on Admission: Yes Comment: EGD suggested hypertrophic pyloric stenosis. Biopsies taken and await the results. NG tube placed and feeling better with much less pain. (2) Nausea and vomiting Acute R11.2 - NAUSEA WITH VOMITING, UNSPECIFIED Present on Admission: Yes unspecified non-intractable R11.2 - Nausea with vomiting, unspecified (3) Hyperlipidemia Chronic E78.5 - HYPERLIPIDEMIA, UNSPECIFIED Present on Admission: Yes mixed hyperlipidemia E78.2 - Mixed hyperlipidemia (4) Hypertension Chronic I10 - ESSENTIAL (PRIMARY) HYPERTENSION Present on Admission: Yes essential hypertension I10 - Essential (primary) hypertension Comment: Continuation of previous medications for hypertension. (5) Tobacco abuse Chronic Z72.0 - TOBACCO USE Comment: Discussion on cessation has taken place and will start on nicotine patch. Plan: 1. await final pathology report. I have called pathology as well. 2. Continue IV fluids 3. IV JUDY 4. Ambulate 5. Monitor labs. 6. Continue supportive treatment for now
[2016-09-23] MEDS ORDERED: POTASSIUM CHLORIDE IV SCH ×5 (17:00)
[2016-09-23] MEDS ORDERED: FAT EMULSION 20% 250 ML IV ONE (17:00)
[2016-09-23] MEDS ORDERED: SODIUM CHLORIDE IV SCH ×5 (17:00)
[2016-09-23] MEDS ORDERED: MULTIPLE IV SCH ×5 (17:00)
[2016-09-23] MEDS ORDERED: [UNRECOGNIZED DRUG - OTHER] IV SCH ×5 (17:00)
[2016-09-23] MEDS ORDERED: VITAMINS IV SCH ×5 (17:00)
[2016-09-23] MEDS: NICOTINE 21 MG PATCH TOP SCH (18:42)
[2016-09-23] MEDS: ENOXAPARIN 40 MG/0.4 ML PFS SQ SCH (18:48)
[2016-09-24] MEDS: Metronidazole 500 mg/100 ml 500 MG/100 ML RTU IV SCH ×5 (00:25→23:50)
[2016-09-24] MEDS: PIPERACILLIN AND TAZOBACTAM 3.375 GM in D5W 100 ML IV SCH ×5 (02:08→22:29)
[2016-09-24] MEDS: NS/KCl 20 mEq 1,000 ML IV SCH ×3 (02:10→17:32)
[2016-09-24] MEDS: PANTOPRAZOLE 40 MG VIAL IV SCH ×2 (05:13→17:37)
[2016-09-24] MEDS ORDERED: DEXTROSE 25 GM/50 ML PFS IV PRN (07:40)
[2016-09-24] MEDS ORDERED: GLUCAGON 1 MG VIAL SQ PRN (07:40)
[2016-09-24] MEDS ORDERED: GLUCOSE (ORAL GEL) 15 GM TUBE PO PRN (07:40)
[2016-09-24 09:27] LABS: AUTOMATED BASOPHIL 0.3 % (0-2); AUTOMATED EOSINOPHIL 4.8 % (0-5); AUTOMATED MONOCYTE 7.1 % (3-10); AUTOMATED NEUTROPHIL 59.8 % (45-76); MPV 10.5 fL (7.4-10.4)
[2016-09-24] MEDS: LISINOPRIL 10 MG TAB PO SCH (09:27)
[2016-09-24] MEDS: HYDROCHLOROTHIAZIDE 12.5 MG CAP PO SCH (09:27)
[2016-09-24 09:30] LABS: BLOOD UREA NITROGEN 10 MG/DL (9-20); CALCIUM 7.9 MG/DL (8.4-10.2); CALCULATED OSMOLALITY 284 MOs/Kg (270-290); CHLORIDE 105 mEq/L (98-107); SODIUM LEVEL 138 mEq/L (137-146); TOTAL PROTEIN 5.7 G/DL (6.3-8.2)
[2016-09-24 09:44] LABS: GLUCOSE 435 MG/DL (70-99)
[2016-09-24] MEDS: REGULAR INSULIN 100 UNITS/ML - 3 ML VIAL IV SCH ×2 (10:12→12:15)
--- NOTE | 2016-09-24 12:11 | PCM.SURGRO ---
- Subjective Patient: Reports: No new complaints, Feels better, No Bowel Movement - Objective / Physical Exam Vital Signs: Temperature: 98.2 F (09/24/16 05:00) HR: 67 (09/24/16 09:28)RR: 17 (09/24/16 05: 00) BP: 130/77 (09/24/16 09:28)Pulse Ox: 97 (09/24/16 05:00) General: Alert, Oriented x3, Cooperative HEENT: Normal, Anicteric Sclera Respiratory: Normal - CTA. negative: Rales, Rhonchi Cardiovascular: Regular rate and rhythm, No Gallops,Rubs/Murmurs Gastrointestinal: Soft. negative: Distended, Tender Extremities: Normal pulses. negative: Tenderness, Edema, Clubbing, Cyanosis Psych/Mental Status: Normal Affect, Cooperative. negative: Agitated, Anxious Skin: Warm,Dry and Intact, No rashes Surgical wound site: Clean/Dry, Intact, Approximated, Erythema Laboratory/Diagnostics Reviewed: 09/24/16 08:52 09/24/16 08:52 Laboratory Results - last 24 hr 09/24/16 09/24/16 09/24/16 08:52 08:52 10:55 WBC 5.9 RBC 4.57 L Hgb 14.1 Hct 42.0 MCV 92 MCH 30.7 MCHC 33.4 RDW 13.2 Plt Count 129 L MPV 10.5 H Neut % (Auto) 59.8 Lymph % (Auto) 28.0 Wilkes % (Auto) 7.1 Eos % (Auto) 4.8 Baso % (Auto) 0.3 Absolute Neuts (auto) 3.48 Absolute Lymphs (auto) 1.65 Sodium 138 Potassium 4.4 Chloride 105 Carbon Dioxide 23 Anion Gap 14 BUN 10 Creatinine 1.00 Estimated GFR (MDRD) > 60 Glucose 435 H* POC Capillary Glucose 53 L Calculated Osmolality 284 Calcium 7.9 L Corrected Calcium 9.0 Phosphorus 3.1 Magnesium 1.90 Total Bilirubin 0.4 AST 14 L ALT 27 Alkaline Phosphatase 62 Total Protein 5.7 L Albumin 2.9 L 09/24/16 10:56 WBC RBC Hgb Hct MCV MCH MCHC RDW Plt Count MPV Neut % (Auto) Lymph % (Auto) Wilkes % (Auto) Eos % (Auto) Baso % (Auto) Absolute Neuts (auto) Absolute Lymphs (auto) Sodium Potassium Chloride Carbon Dioxide Anion Gap BUN Creatinine Estimated GFR (MDRD) Glucose POC Capillary Glucose 57 L Calculated Osmolality Calcium Corrected Calcium Phosphorus Magnesium Total Bilirubin AST ALT Alkaline Phosphatase Total Protein Albumin - Assessment and Plan (1) Nausea and vomiting Acute R11.2 - NAUSEA WITH VOMITING, UNSPECIFIED Present on Admission: Yes unspecified non-intractable R11.2 - Nausea with vomiting, unspecified (2) Gastric outlet obstruction Acute K31.1 - ADULT HYPERTROPHIC PYLORIC STENOSIS Present on Admission: Yes (3) Hyperlipidemia Chronic E78.5 - HYPERLIPIDEMIA, UNSPECIFIED Present on Admission: Yes mixed hyperlipidemia E78.2 - Mixed hyperlipidemia (4) Hypertension Chronic I10 - ESSENTIAL (PRIMARY) HYPERTENSION Present on Admission: Yes essential hypertension I10 - Essential (primary) hypertension Plan: Path reports discussed with patient and his . This has not shown any malignancy. It does remain suspicious for lymphoma. We will arrange for PET scan. May need laparoscopy and further tissue sampling.
[2016-09-24] MEDS: REGULAR INSULIN 100 UNITS/ML - 3 ML VIAL SQ SCH ×3 (12:14→23:49)
--- NOTE | 2016-09-24 12:23 | PCM.GIPROG ---
Progress Note (GI) Chief Complaint: Patient feels much better overall. Denies having any significant abdominal pain. The NG tube is still in. The NG drainage is not accurate since patient has been drinking liquids as well. Denies having any abdominal pain The biopsies were negative for any lymphomas. However, the biopsies did show intestinal metaplasia. There were negative for H pylori. - Physical Exam Vital Signs: Temperature: 98.2 F (09/24/16 05:00) HR: 67 (09/24/16 09:28) RR: 17 (09/24/16 05:00) BP: 130/77 (09/24/16 09:28) Pulse Ox: 97 (09/24/16 05:00) General: Alert, Oriented x3, Cooperative, No acute distress HEENT: Normal, Other (No Jaundice). negative: Pallor Cardiovascular: Normal S1, Normal S2, Other (No S3 or S4.). negative: No murmurs Gastrointestinal: Soft, Bowel Sounds (Normal), Other (No ascites.). negative: Tender, Hepatosplenomegaly Extremities: Normal pulses. negative: Swelling, Edema Skin: Warm,Dry and Intact Neurological: Normal speech, Other (No focal neurologic deficits.) Psych/Mental Status: Normal Affect, Cooperative Result Diagrams: 09/24/16 08:52 09/24/16 08:52 - Impression and Plan (1) Gastric outlet obstruction Acute K31.1 - ADULT HYPERTROPHIC PYLORIC STENOSIS Present on Admission: Yes (2) Nausea and vomiting Acute R11.2 - NAUSEA WITH VOMITING, UNSPECIFIED Present on Admission: Yes unspecified non-intractable R11.2 - Nausea with vomiting, unspecified (3) Hyperlipidemia Chronic E78.5 - HYPERLIPIDEMIA, UNSPECIFIED Present on Admission: Yes mixed hyperlipidemia E78.2 - Mixed hyperlipidemia (4) Hypertension Chronic I10 - ESSENTIAL (PRIMARY) HYPERTENSION Present on Admission: Yes essential hypertension I10 - Essential (primary) hypertension Comment: Continuation of previous medications for hypertension. (5) Tobacco abuse Chronic Z72.0 - TOBACCO USE Comment: Discussion on cessation has taken place and will start on nicotine patch. Plan: 1. agree with JUDY 2. I have discussed with Dr. Aleman 3. Ambulate 4. Check LDH 5. PET scan. 6. May need laparoscopy with biopsies
[2016-09-24] MEDS ORDERED: SODIUM CHLORIDE IV ONE ×6 (15:00)
[2016-09-24] MEDS ORDERED: CALCIUM GLUCONATE IV ONE ×6 (15:00)
[2016-09-24] MEDS ORDERED: POTASSIUM CHLORIDE IV ONE ×6 (15:00)
[2016-09-24] MEDS ORDERED: [UNRECOGNIZED DRUG - OTHER] IV ONE ×6 (15:00)
[2016-09-24] MEDS: NICOTINE 21 MG PATCH TOP SCH (15:57)
[2016-09-24] MEDS: FAT EMULSION 20% 250 ML IV SCH (16:54)
[2016-09-24] MEDS: ENOXAPARIN 40 MG/0.4 ML PFS SQ SCH (17:45)
--- NOTE | 2016-09-24 18:16 | GENMEDPROG ---
Chief Complaint: Disconnected from suction and developed gastric discuss attention requiring reconnection and copious output. Notes Reviewed: Yes Events from last night noted and discussed with Clinical Staff Current Medication List: Reviewed Currently: Reports: Tobacco Use/Hx (Smokes a half pack cigarettes a day) DVT Prophylaxis: Yes - Physical Examination Vital Signs and I&O: Last Vital Signs Temp 97.6 F 09/24/16 13:20 Pulse 70 09/24/16 13:20 Resp 20 09/24/16 13:20 BP 136/76 09/24/16 13:20 Pulse Ox 95 09/24/16 13:20 Oxygen Pulse Oxygen Saturation 95 O2 Device Room Air Oxygen Flow Rate 2 Fraction of Inspired Oxygen ( FIO2) Intake & Output 09/21/16 09/22/16 09/23/16 09/24/16 23:59 23:59 23:59 23:59 Intake Total 81 1448 2985 2053 Output Total 50 876 225 9176 Balance 31 823 2485 -447 Patient's weight 93.803 kg 95.51 kg 95.481 kg 96.7 kg General: Alert, Oriented x3, Cooperative, No acute distress HEENT: Normal (Normocephalic, atraumatic;EOMI.Sclera white, Nares patent, without discharge or bleeding. No oropharyngeal lesions or erythema. Mucous membranes are dry.) Neck: Non-tender, Full range of motion, Normal Trachea alignment, Normal inspection (No cervical lymphadenopathy. No supraclavicular lymphadenopathy.), No Masses palpable, Supple Lymphatics: Normal (No lymph node swelling or pain.) Respiratory: Normal - CTA (Clear to auscultation bilaterally. No wheezing, rales , rhonchi. Chest wall movements are symmetric. No use of accessory muscles to breathe.) Cardiovascular: Regular rate and rhythm (No bradycardia or tachycardia), Normal S1, No Gallops,Rubs/Murmurs, Normal S2, Good Pedal Pulses (DP pulses 2+ bilaterally) GI: Normal bowel sounds (normal active sounds), No hepatospenomegaly, No masses , Tenderness. negative: Soft (Slightly Distended and tender abdomen) Extremities/Musculoskeletal: Normal pulses. negative: Swelling, Edema Skin: Warm,Dry and Intact Neurological: Strength at 5/5 X4 ext (Motor 5/5 throughout.), Normal tone, Cranial nerves 3-12 NL ( 2-12 grossly intact.) Psych/Mental Status: Other (Depressed) - Assessment (1) Gastric outlet obstruction Acute K31.1 - ADULT HYPERTROPHIC PYLORIC STENOSIS Comment/Plan: Discuss with Dr. Aleman and concern is that he has some type of GI lymphoma that is going to require surgery. Patient now getting TPN and family is upset that all of it can not be run in through the same PICC line. They also informed me that he has to get an inpatient PET scan which I am not aware can be done on an inpatient basis. (2) Hypertension Chronic I10 - ESSENTIAL (PRIMARY) HYPERTENSION Qualifiers: Hypertension type: essential hypertension Qualified Code(s): I10 - Essential (primary) hypertension Comment/Plan: Continuation of previous medications for hypertension. (3) Hyperlipidemia Chronic E78.5 - HYPERLIPIDEMIA, UNSPECIFIED Qualifiers: Hyperlipidemia type: mixed hyperlipidemia Qualified Code(s): E78.2 - Mixed hyperlipidemia (4) Tobacco abuse Chronic Z72.0 - TOBACCO USE Comment/Plan: Discussion on cessation has taken place and will start on nicotine patch. (5) Nausea and vomiting Acute R11.2 - NAUSEA WITH VOMITING, UNSPECIFIED Qualifiers: Vomiting type: unspecified Vomiting Intractability: non-intractable Qualified Code(s): R11.2 - Nausea with vomiting, unspecified Comment/Plan: Related to his gastric outlet obstruction. Case Care Discussed with: Patient, Nursing Staff Education/Counseling Given To: Patient Education/Counseling Given Regarding: Diagnosis Total Time: 38 min Critical Care: No Code: 13901 (12+)
[2016-09-25] MEDS: NS/KCl 20 mEq 1,000 ML IV SCH ×3 (04:08→10:53)
[2016-09-25] MEDS: PANTOPRAZOLE 40 MG VIAL IV SCH ×2 (04:08→16:32)
[2016-09-25] MEDS: PIPERACILLIN AND TAZOBACTAM 3.375 GM in D5W 100 ML IV SCH ×4 (04:09→22:32)
[2016-09-25] MEDS: Metronidazole 500 mg/100 ml 500 MG/100 ML RTU IV SCH ×3 (06:30→17:48)
[2016-09-25] MEDS: REGULAR INSULIN 100 UNITS/ML - 3 ML VIAL SQ SCH ×3 (06:32→16:52)
[2016-09-25] MEDS: HYDROCHLOROTHIAZIDE 12.5 MG CAP PO SCH (08:06)
[2016-09-25] MEDS: LISINOPRIL 10 MG TAB PO SCH (08:06)
[2016-09-25 08:48] LABS: AUTOMATED BASOPHIL 0.4 % (0-2); AUTOMATED EOSINOPHIL 4.7 % (0-5); AUTOMATED LYMPH 33.8 % (17-44); AUTOMATED MONOCYTE 7.6 % (3-10); AUTOMATED NEUTROPHIL 53.5 % (45-76); MPV 10.3 fL (7.4-10.4)
[2016-09-25 09:03] LABS: BLOOD UREA NITROGEN 10 MG/DL (9-20); CALCIUM 8.3 MG/DL (8.4-10.2); CALCULATED OSMOLALITY 275 MOs/Kg (270-290); CHLORIDE 106 mEq/L (98-107); GLUCOSE 311 MG/DL (70-99); SODIUM LEVEL 137 mEq/L (137-146)
--- NOTE | 2016-09-25 09:58 | GENMEDPROG ---
Chief Complaint: ng draining no abdominal pain Notes Reviewed: Yes Events from last night noted and discussed with Clinical Staff Current Medication List: Reviewed Currently: Reports: Tobacco Use/Hx (Smokes a half pack cigarettes a day) DVT Prophylaxis: Yes - Physical Examination Vital Signs and I&O: Last Vital Signs Temp 98.7 F 09/25/16 06:35 Pulse 61 09/25/16 06:35 Resp 18 09/25/16 06:35 BP 128/78 09/25/16 06:35 Pulse Ox 95 09/25/16 06:35 Oxygen Pulse Oxygen Saturation 95 O2 Device Room Air Oxygen Flow Rate 2 Fraction of Inspired Oxygen ( FIO2) Intake & Output 09/22/16 09/23/16 09/24/16 09/25/16 23:59 23:59 23:59 23:59 Intake Total 1448 2985 2869 2082 Output Total 063 312 3641 475 Balance 823 5535 -656 1600 Patient's weight 95.51 kg 95.481 kg 96.7 kg 96.7 kg General: Alert, Oriented x3, Cooperative, No acute distress HEENT: Normal (Normocephalic, atraumatic;EOMI.Sclera white, Nares patent, without discharge or bleeding. No oropharyngeal lesions or erythema. Mucous membranes are dry.) Neck: Non-tender, Full range of motion, Normal Trachea alignment, Normal inspection (No cervical lymphadenopathy. No supraclavicular lymphadenopathy.), No Masses palpable, Supple Lymphatics: Normal (No lymph node swelling or pain.) Respiratory: Normal - CTA (Clear to auscultation bilaterally. No wheezing, rales , rhonchi. Chest wall movements are symmetric. No use of accessory muscles to breathe.) Cardiovascular: Regular rate and rhythm (No bradycardia or tachycardia), Normal S1, No Gallops,Rubs/Murmurs, Normal S2, Good Pedal Pulses (DP pulses 2+ bilaterally) GI: Normal bowel sounds (normal active sounds), Soft (Slightly Distended), Non tender, No hepatospenomegaly, No masses Extremities/Musculoskeletal: Normal pulses. negative: Swelling, Edema Skin: Warm,Dry and Intact, No rashes, No breakdown, No significant lesion Neurological: Strength at 5/5 X4 ext (Motor 5/5 throughout.), Normal tone, Cranial nerves 3-12 NL ( 2-12 grossly intact.) Psych/Mental Status: Appropriate, Other (Depressed) Lab/DI/Studies Reviewed: 09/25/16 08:18 09/25/16 08:18 Laboratory Results - last 24 hr 09/24/16 09/24/16 09/24/16 10:55 10:56 12:11 WBC RBC Hgb Hct MCV MCH MCHC RDW Plt Count MPV Neut % (Auto) Lymph % (Auto) Hitchcock % (Auto) Eos % (Auto) Baso % (Auto) Absolute Neuts (auto) Absolute Lymphs (auto) Sodium Potassium Chloride Carbon Dioxide Anion Gap BUN Creatinine Estimated GFR (MDRD) Glucose POC Capillary Glucose 53 L 57 L 161 H Calculated Osmolality Calcium Phosphorus Magnesium Lactate Dehydrogenase Triglycerides 09/24/16 09/24/16 09/25/16 16:02 21:22 06:20 WBC RBC Hgb Hct MCV MCH MCHC RDW Plt Count MPV Neut % (Auto) Lymph % (Auto) Hitchcock % (Auto) Eos % (Auto) Baso % (Auto) Absolute Neuts (auto) Absolute Lymphs (auto) Sodium Potassium Chloride Carbon Dioxide Anion Gap BUN Creatinine Estimated GFR (MDRD) Glucose POC Capillary Glucose 78 101 H 105 H Calculated Osmolality Calcium Phosphorus Magnesium Lactate Dehydrogenase Triglycerides 09/25/16 09/25/16 09/25/16 08:18 08:18 08:18 WBC 5.8 RBC 4.51 L Hgb 13.7 L Hct 41.1 L MCV 91 MCH 30.3 MCHC 33.2 RDW 13.2 Plt Count 121 L MPV 10.3 Neut % (Auto) 53.5 Lymph % (Auto) 33.8 Hitchcock % (Auto) 7.6 Eos % (Auto) 4.7 Baso % (Auto) 0.4 Absolute Neuts (auto) 3.07 Absolute Lymphs (auto) 1.91 Sodium 137 Potassium 4.0 Chloride 106 Carbon Dioxide 24 Anion Gap 11 BUN 10 Creatinine 1.00 Estimated GFR (MDRD) > 60 Glucose 311 H POC Capillary Glucose Calculated Osmolality 275 Calcium 8.3 L Phosphorus 3.4 Magnesium 1.80 Lactate Dehydrogenase 289 L Triglycerides 92 - Assessment (1) Gastric outlet obstruction Acute K31.1 - ADULT HYPERTROPHIC PYLORIC STENOSIS Comment/Plan: Gastric outlet obstruction apparently has not improving and will need surgery per Dr. Aleman. Concern is generated that he has a gastrointestinal lymphoma causing this obstructive process. I advise the family that once he has surgery, deeper tissues will be sampled, and get a better idea of what's going on here. Family is all in favor of this. (2) Hypertension Chronic I10 - ESSENTIAL (PRIMARY) HYPERTENSION Qualifiers: Hypertension type: essential hypertension Qualified Code(s): I10 - Essential (primary) hypertension Comment/Plan: Continuation of previous medications for hypertension. (3) Hyperlipidemia Chronic E78.5 - HYPERLIPIDEMIA, UNSPECIFIED Qualifiers: Hyperlipidemia type: mixed hyperlipidemia Qualified Code(s): E78.2 - Mixed hyperlipidemia (4) Tobacco abuse Chronic Z72.0 - TOBACCO USE Comment/Plan: Discussion on cessation has taken place and will start on nicotine patch. (5) Nausea and vomiting Acute R11.2 - NAUSEA WITH VOMITING, UNSPECIFIED Qualifiers: Vomiting type: unspecified Vomiting Intractability: non-intractable Qualified Code(s): R11.2 - Nausea with vomiting, unspecified Comment/Plan: Related to his gastric outlet obstruction. (6) Hyperglycemia Acute R73.9 - HYPERGLYCEMIA, UNSPECIFIED Comment/Plan: Not sure how new this is but he has had blood sugars in the 300's but when given insulin to control it he became hypoglycemic. Checking urine microalbumin and glycohemoglobin. Case Care Discussed with: Patient, Family, Nursing Staff Education/Counseling Given To: Patient, Family Member Education/Counseling Given Regarding: Diagnosis Total Time: 38 min Critical Care: No Code: 59241 (12+)
--- NOTE | 2016-09-25 11:56 | PCM.SURGRO ---
- Subjective Patient: Reports: No new complaints - Objective / Physical Exam Vital Signs: Temperature: 98.7 F (09/25/16 06:35) HR: 61 (09/25/16 06:35)RR: 18 (09/25/16 06: 35) BP: 128/78 (09/25/16 06:35)Pulse Ox: 95 (09/25/16 06:35) General: Alert, Oriented x3, Cooperative HEENT: Normal Respiratory: Normal - CTA Cardiovascular: Regular rate and rhythm, No Gallops,Rubs/Murmurs Gastrointestinal: Soft. negative: Distended Back: Normal Extremities: Normal pulses Psych/Mental Status: Appropriate Skin: Warm,Dry and Intact Surgical wound site: Clean/Dry, Intact, Approximated Lymphatics: Normal, Adenopathy Laboratory/Diagnostics Reviewed: 09/25/16 08:18 09/25/16 08:18 Laboratory Results - last 24 hr 09/24/16 09/24/16 09/24/16 12:11 16:02 21:22 WBC RBC Hgb Hct MCV MCH MCHC RDW Plt Count MPV Neut % (Auto) Lymph % (Auto) [place] % (Auto) Eos % (Auto) Baso % (Auto) Absolute Neuts (auto) Absolute Lymphs (auto) Sodium Potassium Chloride Carbon Dioxide Anion Gap BUN Creatinine Estimated GFR (MDRD) Glucose POC Capillary Glucose 161 H 78 101 H Calculated Osmolality Calcium Phosphorus Magnesium Lactate Dehydrogenase Triglycerides 09/25/16 09/25/16 09/25/16 06:20 08:18 08:18 WBC 5.8 RBC 4.51 L Hgb 13.7 L Hct 41.1 L MCV 91 MCH 30.3 MCHC 33.2 RDW 13.2 Plt Count 121 L MPV 10.3 Neut % (Auto) 53.5 Lymph % (Auto) 33.8 [place] % (Auto) 7.6 Eos % (Auto) 4.7 Baso % (Auto) 0.4 Absolute Neuts (auto) 3.07 Absolute Lymphs (auto) 1.91 Sodium 137 Potassium 4.0 Chloride 106 Carbon Dioxide 24 Anion Gap 11 BUN 10 Creatinine 1.00 Estimated GFR (MDRD) > 60 Glucose 311 H POC Capillary Glucose 105 H Calculated Osmolality 275 Calcium 8.3 L Phosphorus 3.4 Magnesium 1.80 Lactate Dehydrogenase Triglycerides 92 09/25/16 09/25/16 08:18 11:31 WBC RBC Hgb Hct MCV MCH MCHC RDW Plt Count MPV Neut % (Auto) Lymph % (Auto) [place] % (Auto) Eos % (Auto) Baso % (Auto) Absolute Neuts (auto) Absolute Lymphs (auto) Sodium Potassium Chloride Carbon Dioxide Anion Gap BUN Creatinine Estimated GFR (MDRD) Glucose POC Capillary Glucose 107 H Calculated Osmolality Calcium Phosphorus Magnesium Lactate Dehydrogenase 289 L Triglycerides - Assessment and Plan (1) Nausea and vomiting Acute R11.2 - NAUSEA WITH VOMITING, UNSPECIFIED Present on Admission: Yes unspecified non-intractable R11.2 - Nausea with vomiting, unspecified (2) Gastric outlet obstruction Acute K31.1 - ADULT HYPERTROPHIC PYLORIC STENOSIS Present on Admission: Yes (3) Hyperlipidemia Chronic E78.5 - HYPERLIPIDEMIA, UNSPECIFIED Present on Admission: Yes mixed hyperlipidemia E78.2 - Mixed hyperlipidemia (4) Hypertension Chronic I10 - ESSENTIAL (PRIMARY) HYPERTENSION Present on Admission: Yes essential hypertension I10 - Essential (primary) hypertension Plan: Informed that PET scan cannot be done as inpatient and would not be available until the . As we do need to have a tissue diagnosis, we will go ahead and plan on laparoscopy and multiple biopsies. We would also go ahead and place feeding tube to enable enteral feeds at that time. Patient agreeable with plan.
[2016-09-25] MEDS ORDERED: [UNRECOGNIZED DRUG - OTHER] IV ONE ×7 (12:00)
[2016-09-25] MEDS ORDERED: SODIUM CHLORIDE IV ONE ×7 (12:00)
[2016-09-25] MEDS ORDERED: POTASSIUM CHLORIDE IV ONE ×7 (12:00)
[2016-09-25] MEDS ORDERED: MAGNESIUM SULFATE IV ONE ×7 (12:00)
--- NOTE | 2016-09-25 12:48 | PCM.GIPROG ---
Progress Note (GI) Chief Complaint: Patient with gastric outlet obstruction due to unknown reasons. No obvious gastric cancers. Suspected lymphoma since patient did have positive H pylori antibody. The biopsies were negative for H pylori. I have reviewed Dr. Aleman's note and have extensively discussed with the patient and patient's family. Patient feels better with the NG tube. He denies having any abdominal pain. - Physical Exam Vital Signs: Temperature: 98.7 F (09/25/16 06:35) HR: 61 (09/25/16 06:35) RR: 18 (09/25/16 06:35) BP: 128/78 (09/25/16 06:35) Pulse Ox: 95 (09/25/16 06:35) General: Alert, Oriented x3, Cooperative, No acute distress HEENT: Normal, Other (No Jaundice). negative: Pallor Cardiovascular: Normal S1, Normal S2, Other (No S3 or S4.). negative: No murmurs Gastrointestinal: Soft, Bowel Sounds (Normal), Other (No ascites.). negative: Tender, Hepatosplenomegaly Extremities: Normal pulses. negative: Swelling, Edema Skin: Warm,Dry and Intact Neurological: Normal speech, Other (No focal neurologic deficits.) Psych/Mental Status: Normal Affect, Cooperative Result Diagrams: 09/25/16 08:18 09/25/16 08:18 - Impression and Plan (1) Gastric outlet obstruction Acute K31.1 - ADULT HYPERTROPHIC PYLORIC STENOSIS Present on Admission: Yes (2) Nausea and vomiting Acute R11.2 - NAUSEA WITH VOMITING, UNSPECIFIED Present on Admission: Yes unspecified non-intractable R11.2 - Nausea with vomiting, unspecified Comment: Related to his gastric outlet obstruction. (3) Hyperlipidemia Chronic E78.5 - HYPERLIPIDEMIA, UNSPECIFIED Present on Admission: Yes mixed hyperlipidemia E78.2 - Mixed hyperlipidemia (4) Hypertension Chronic I10 - ESSENTIAL (PRIMARY) HYPERTENSION Present on Admission: Yes essential hypertension I10 - Essential (primary) hypertension Comment: Continuation of previous medications for hypertension. (5) Tobacco abuse Chronic Z72.0 - TOBACCO USE Comment: Discussion on cessation has taken place and will start on nicotine patch. Plan: 1. proceed with the laparoscopy with biopsies and feeding tubes as planned by Dr. Aleman 2. Continue IV fluids for now 3. Continue TPN 4. Monitor labs 5. Will follow along
[2016-09-25] MEDS: FAT EMULSION 20% 250 ML IV SCH (16:28)
[2016-09-25] MEDS: NICOTINE 21 MG PATCH TOP SCH (16:36)
[2016-09-25] MEDS: ENOXAPARIN 40 MG/0.4 ML PFS SQ SCH (17:48)
[2016-09-26] MEDS: REGULAR INSULIN 100 UNITS/ML - 3 ML VIAL SQ SCH ×4 (00:50→16:59)
[2016-09-26] MEDS: Metronidazole 500 mg/100 ml 500 MG/100 ML RTU IV SCH ×4 (00:50→21:21)
[2016-09-26] MEDS: NS/KCl 20 mEq 1,000 ML IV SCH ×3 (00:51→17:00)
[2016-09-26] MEDS: PANTOPRAZOLE 40 MG VIAL IV SCH ×2 (03:10→16:55)
[2016-09-26] MEDS: PIPERACILLIN AND TAZOBACTAM 3.375 GM in D5W 100 ML IV SCH ×4 (04:27→22:32)
[2016-09-26] MEDS: HYDROCHLOROTHIAZIDE 12.5 MG CAP PO SCH (07:18)
[2016-09-26] MEDS: LISINOPRIL 10 MG TAB PO SCH (07:18)
[2016-09-26 07:23] LABS: AUTOMATED BASOPHIL 0.6 % (0-2); AUTOMATED EOSINOPHIL 5.2 % (0-5); AUTOMATED LYMPH 30.4 % (17-44); AUTOMATED MONOCYTE 8.2 % (3-10); AUTOMATED NEUTROPHIL 55.6 % (45-76); MPV 10.1 fL (7.4-10.4)
[2016-09-26 07:59] LABS: BLOOD UREA NITROGEN 10 MG/DL (9-20); CALCIUM 8.3 MG/DL (8.4-10.2); CALCULATED OSMOLALITY 266 MOs/Kg (270-290); CHLORIDE 107 mEq/L (98-107); GLUCOSE 112 MG/DL (70-99); SODIUM LEVEL 138 mEq/L (137-146)
[2016-09-26] MEDS ORDERED: [UNRECOGNIZED DRUG - OTHER] IV SCH (09:00)
[2016-09-26] MEDS ORDERED: FENTANYL 250 MCG/5 ML VIAL IV ONE (10:00)
[2016-09-26] MEDS ORDERED: GLYCOPYRROLATE 1 MG VIAL IM ONE (10:00)
[2016-09-26] MEDS ORDERED: LIDOCAINE 4% 5 ML AMPULE NEB ONE (10:00)
[2016-09-26] MEDS ORDERED: ROCURONIUM 50 MG/5 ML VIAL IV ONE (10:00)
[2016-09-26] MEDS ORDERED: ONDANSETRON HCL 4 MG/2 ML VIAL IV ONE (10:00)
[2016-09-26] MEDS ORDERED: NEOSTIGMINE 1 MG/1 ML (1:1000) INJ 10 ML MDV IM ONE (10:00)
[2016-09-26] MEDS ORDERED: MIDAZOLAM 2 MG/2 ML VIAL IV ONE (10:00)
[2016-09-26] MEDS ORDERED: SUCCINYLCHOLINE 20 MG/1 ML INJ 10 ML MDV IV ONE (10:00)
[2016-09-26] MEDS ORDERED: PROPOFOL 200 MG/20 ML VIAL IV ONE (10:00)
[2016-09-26] MEDS ORDERED: FENTANYL 100 MCG/2 ML VIAL IV PRN ×2 (10:45)
[2016-09-26] MEDS ORDERED: hydrALAZINE 20 MG/ML VIAL IV PRN (10:45)
[2016-09-26] MEDS ORDERED: HYDROmorphone 1 MG INJECTION IV PRN ×2 (10:45)
[2016-09-26] MEDS ORDERED: MEPERIDINE 25 MG/ML TUBEX IV PRN (10:45)
[2016-09-26] MEDS ORDERED: ONDANSETRON HCL 4 MG/2 ML VIAL IV PRN (10:45)
[2016-09-26] MEDS ORDERED: LABETALOL 20 MG/4 ML SYRINGE IV PRN (10:45)
[2016-09-26] MEDS ORDERED: ONDANSETRON HCL 4 MG ODT TAB PO PRN (10:45)
[2016-09-26] MEDS ORDERED: BUPIVACAINE 0.25% 30 ML VIAL ONE (10:58)
[2016-09-26] MEDS ORDERED: MAGNESIUM SULFATE IV ONE ×7 (11:00)
[2016-09-26] MEDS ORDERED: SODIUM CHLORIDE IV ONE ×7 (11:00)
[2016-09-26] MEDS ORDERED: [UNRECOGNIZED DRUG - OTHER] IV ONE ×7 (11:00)
[2016-09-26] MEDS ORDERED: POTASSIUM CHLORIDE IV ONE ×7 (11:00)
--- NOTE | 2016-09-26 11:01 | SC.ANESPOS ---
Post-Anesthesia Note LOC: [place] on Calling Post-Anesthesia Assessment: Awake, Returned to Baseline, Hemodynamically Stable , Pain Control Adequate Phase I & II Recovery Complete: Yes Apparent Anesthesia Complication: No : N - Vital Signs Blood Pressure: 137/78 Pulse: 72 Resp Rate: 16 O2 Sat: 98 Temp: 97.1 F
--- NOTE | 2016-09-26 11:05 | HIM.ANES ---
Anesthesia Evaluation & Plan Diagnoses: EPIGASTRIC PAIN (09/21/16) ABNORMAL WEIGHT LOSS (09/21/16) ABNORMAL FINDINGS ON DX IMAGING OF PRT DIGESTIVE TRACT (09/21/16) Consented Procedure: EGD Surgeon:: Marcos Jimenez - Focused Review of Systems Cardiac History: Yes: Hx Hypertension HEENT: Yes: Hx Hearing Impairment (sore throat) Respiratory: Yes: Hx Snoring Gastrointestinal: Yes: Hx Colonoscopy (06/2016), Other (Gastric outlet obstruction/NG in place) Neurological/Musculoskeletal: No: Hx Neurological Disorders Psychological: No Hx Mental/Emotional Disorders Smoking Status: Heavy tobacco smoker (5 or more cigarettes/day or daily pipe/ cigar) Past Social History: Denies: Alcohol Use - Focused Physical Exam NPO since: admission Mallampati: Class III Neck: Full Range of Motion Dental: Normal - no significant findings Cardiovascular/Chest: Normal Respiratory: Lungs clear Any problems with anesthesia, including nausea and vomiting?: No Any relatives with a history of Malignant Hyperthermia?: No Does patient have a history of Malignant Hyperthermia?: No Beta Sylvester given (if appropriate): N/A Other: Problem List Problem Status Onset Gastric outlet obstruction Acute Hyperglycemia Acute Nausea and vomiting Acute Hyperlipidemia Chronic Hypertension Chronic Tobacco abuse Chronic CBC/BMP/Other 09/26/16 07:01 09/26/16 07:01 Allergies Allergy/AdvReac Type Severity Reaction Status Date / Time No Known Allergies Allergy Verified 09/21/16 12:10 Home Medications Medication Instructions Recorded Last Taken Type Lisinopril/Hydrochlorothiazide 1 tab PO DAILY 09/21/16 09/20/16 History [Lisinopril-Hctz 10-12.5 mg Tab] Height and Weight Patient's height 6 ft 1 in Patient's weight 210 lb 1 oz Weight (Calculated Kilograms) 95.283 BMI 28.1 Vital Signs Temperature 97.1 F L 09/26/16 11:01 Pulse Rate 72 09/26/16 11:01 Respiratory Rate 16 09/26/16 11:01 Blood Pressure 137/78 09/26/16 11:01 Pulse Oxygen Saturation 98 09/26/16 11:01 METS - Level of Activity: Eating, Dressing, walking around house, dishwashing - Anesthetic Plan Anesthesia Type: General ASA Class: 2 -: I have examined this patient and reviewed the medical record. The patient has been assessed prior to anesthesia. Risks and benefits of anesthesia and anesthetic technique options have been discussed and all questions answered. The patient accepts the risk and desires me to proceed with the planned anesthetic.
[2016-09-26] MEDS ORDERED: HYDROmorphone 1 MG INJECTION ONE ×2 (14:18→14:54)
[2016-09-26] MEDS ORDERED: HYDROmorphone 1 MG INJECTION IV ONE (14:42)
--- NOTE | 2016-09-26 15:41 | SC.ANESPOS ---
Post-Anesthesia Note LOC: Fully Awake Post-Anesthesia Assessment: Awake, Returned to Baseline, Hemodynamically Stable , Pain Control Adequate Phase I & II Recovery Complete: Yes Apparent Anesthesia Complication: No : N PACU Discharge Time: 15:20 - Vital Signs Blood Pressure: 130/68 Pulse: 56 Resp Rate: 16 O2 Sat: 98 Temp: 97.3 F - Comments Anesthesia Discharge Time Report Time 15:20
[2016-09-26] MEDS: NICOTINE 21 MG PATCH TOP SCH (15:43)
[2016-09-26] MEDS: FAT EMULSION 20% 250 ML IV SCH (16:37)
--- NOTE | 2016-09-26 16:56 | GENMEDPROG ---
Note Attempted to see patient x2. He was not in his room both times. Will evaluate tomorrow. He has been in the operating room all day for surgery on his pyloric outlet obstruction.
[2016-09-26] MEDS: MORPHINE 2 MG/ML INJECTION IV PRN ×2 (18:02→22:32)
--- NOTE | 2016-09-26 18:18 | HIMOPRPT ---
[id number] POSTOPERATIVE DIAGNOSES: Same PROCEDURES: Laparoscopy, LN biopsy, Placement of G-Tube and J-tube. SURGEON: Rohan Aleman MD ANESTHESIA: GET COMPLICATIONS: None. ESTIMATED BLOOD LOSS: <10cc OPERATIVE NOTE: Patient was taken to the operating room and placed supine on the operating room table. After induction of anesthesia, he was draped and prepped in the usual fashion. Time-out was taken patient was re-identified and procedure verified. An infraumbilical incision was then made and an Optiview trocar was placed. The abdomen was insufflated with CO2 until a pressure of 15 mm Hg was achieved. 2 5 mm ports were placed in the left abdomen. An 11 mm port was placed in the epigastric region. By alternating between all these ports we able to divide the gastrocolic ligament using the Harmonic scalpel. We then identified the lymph nodes that had been seen on CT scan. Using careful dissection with the Harmonic scalpel enabled the removal of lymph node and sent this off fresh for evaluation. The area remained hemostatic. The liver was smooth without any nodularities. The stomach was nondistended and appeared soft pliable. At the pylorus, this area was quite firm. This was more firm up around the anterior and superior aspect. Opted to do a trance wall core biopsy of this area. This was done without difficulties. Two small cores were taken and these were passed off. Sites remained hemostatic. No hematoma was present. We then went ahead and placed a gastrostomy tube. Vicryl sutures were placed on the anterior gastric wall and brought out percutaneously using [place] suture Passer. Then placed a needle directly into the stomach and passed a guidewire through it. We had picked the site of the left upper quadrant port/trochar through which to do this. The port was removed leaving the site open. Utilizing dilators were able to dilate the opening and then were able to place a 24 [place] gastrostomy tube. Balloon was insufflated and then we pulled up on the stay sutures bringing the wall up against the abdominal wall. These were tied down and the gastrostomy tube was buttressed down and secured. We found a segment in the jejunum approximately 20 cm from the ligament [place]. We placed a small 16 Israeli jejunostomy tube in a likewise manner. Sutures were utilized the suspend the small bowel. A needle was placed in and then a guidewire through the needle. The needle was removed. Then using sequential dilators were able to place the catheter into the small bowel. The balloon was insufflated the sutures were lifted up against the abdominal wall these were tied down without difficulties. Then irrigated the abdominal cavity suctioned out the irrigation removed the remaining ports. Large port site was closed using 0 Vicryl sutures. Skin edges were approximated using skin delaney. Patient tolerated this well sponge, needle, instrument counts were all correct.
[2016-09-26] MEDS: ONDANSETRON HCL 4 MG/2 ML VIAL IV PRN (18:23)
[2016-09-26] MEDS ORDERED: MORPHINE 2 MG/ML INJECTION ONE (19:33)
[2016-09-26] MEDS: ENOXAPARIN 40 MG/0.4 ML PFS SQ SCH (19:46)
[2016-09-27] MEDS: REGULAR INSULIN 100 UNITS/ML - 3 ML VIAL SQ SCH ×3 (01:28→13:11)
[2016-09-27] MEDS: MORPHINE 2 MG/ML INJECTION IV PRN ×7 (03:22→22:23)
[2016-09-27] MEDS: NS/KCl 20 mEq 1,000 ML IV SCH ×3 (03:23→23:53)
[2016-09-27] MEDS: Metronidazole 500 mg/100 ml 500 MG/100 ML RTU IV SCH ×4 (03:23→22:23)
[2016-09-27] MEDS: PANTOPRAZOLE 40 MG VIAL IV SCH ×2 (03:23→15:46)
[2016-09-27] MEDS: PIPERACILLIN AND TAZOBACTAM 3.375 GM in D5W 100 ML IV SCH ×4 (04:45→23:35)
[2016-09-27] MEDS ORDERED: MAGNESIUM SULFATE IV ONE ×12 (05:00→11:00)
[2016-09-27] MEDS ORDERED: SODIUM CHLORIDE IV ONE ×12 (05:00→11:00)
[2016-09-27] MEDS ORDERED: POTASSIUM CHLORIDE IV ONE ×12 (05:00→11:00)
[2016-09-27] MEDS ORDERED: [UNRECOGNIZED DRUG - OTHER] IV ONE ×5 (05:00)
[2016-09-27 07:08] LABS: AUTOMATED BASOPHIL 0.3 % (0-2); AUTOMATED EOSINOPHIL 2.9 % (0-5); AUTOMATED LYMPH 24.3 % (17-44); AUTOMATED MONOCYTE 6.3 % (3-10); AUTOMATED NEUTROPHIL 66.2 % (45-76); MPV 10.8 fL (7.4-10.4)
[2016-09-27 07:49] LABS: BLOOD UREA NITROGEN 10 MG/DL (9-20); CALCIUM 8.1 MG/DL (8.4-10.2); CALCULATED OSMOLALITY 264 MOs/Kg (270-290); CHLORIDE 106 mEq/L (98-107); GLUCOSE 118 MG/DL (70-99); SODIUM LEVEL 137 mEq/L (137-146)
[2016-09-27] MEDS ORDERED: NS 50 ML IV ONE (09:00)
[2016-09-27] MEDS ORDERED: [UNRECOGNIZED DRUG - OTHER] IV ONE ×7 (11:00)
[2016-09-27] MEDS: HYDROCHLOROTHIAZIDE 12.5 MG CAP PO SCH (11:25)
[2016-09-27] MEDS: LISINOPRIL 10 MG TAB PO SCH (11:25)
[2016-09-27 12:39] VITALS: BMI 27.8
--- NOTE | 2016-09-27 14:12 | PCM.SURGRO ---
- Subjective Patient: Reports: Still having pain, No Bowel Movement. Denies: Diarrhea, Nausea, Shortness of breath - Objective / Physical Exam Vital Signs: Temperature: 98.4 F (09/27/16 13:54) HR: 70 (09/27/16 13:54)RR: 18 (09/27/16 13: 54) BP: 138/71 (09/27/16 13:54)Pulse Ox: 96 (09/27/16 13:54) General: Alert, Oriented x3, Cooperative HEENT: Normal, EOMI, Anicteric Sclera Respiratory: Normal - CTA. negative: Rales, Retractions, Wheezes Cardiovascular: Regular rate and rhythm, No Gallops,Rubs/Murmurs Gastrointestinal: Soft, Tender. negative: Guarding, Firm Back: Normal. negative: Ecchymosis, CVA Tenderness Extremities: negative: Swelling, Edema, Clubbing, Cyanosis Psych/Mental Status: Cooperative. negative: Confabulating, Confused Skin: Warm,Dry and Intact, No rashes Surgical wound site: Clean/Dry, Intact, Approximated. negative: Erythema Laboratory/Diagnostics Reviewed: 09/27/16 06:00 09/27/16 06:00 Laboratory Results - last 24 hr 09/25/16 09/26/16 09/26/16 08:18 04:55 14:27 WBC RBC Hgb Hct MCV MCH MCHC RDW Plt Count MPV Neut % (Auto) Lymph % (Auto) [place] % (Auto) Eos % (Auto) Baso % (Auto) Absolute Neuts (auto) Absolute Lymphs (auto) Sodium Potassium Chloride Carbon Dioxide Anion Gap BUN Creatinine Estimated GFR (MDRD) Glucose POC Capillary Glucose 118 H Calculated Osmolality Calcium Magnesium Prealbumin 15 Ur Random Microalbumin 8.7 09/26/16 09/27/16 09/27/16 16:47 01:03 05:51 WBC RBC Hgb Hct MCV MCH MCHC RDW Plt Count MPV Neut % (Auto) Lymph % (Auto) [place] % (Auto) Eos % (Auto) Baso % (Auto) Absolute Neuts (auto) Absolute Lymphs (auto) Sodium Potassium Chloride Carbon Dioxide Anion Gap BUN Creatinine Estimated GFR (MDRD) Glucose POC Capillary Glucose 109 H 104 H 118 H Calculated Osmolality Calcium Magnesium Prealbumin Ur Random Microalbumin 09/27/16 09/27/16 09/27/16 06:00 06:00 11:00 WBC 7.8 RBC 4.45 L Hgb 13.7 L Hct 40.2 L MCV 90 MCH 30.7 MCHC 34.1 RDW 13.4 Plt Count 127 L MPV 10.8 H Neut % (Auto) 66.2 Lymph % (Auto) 24.3 [place] % (Auto) 6.3 Eos % (Auto) 2.9 Baso % (Auto) 0.3 Absolute Neuts (auto) 5.15 Absolute Lymphs (auto) 1.87 Sodium 137 Potassium 3.7 Chloride 106 Carbon Dioxide 23 Anion Gap 12 BUN 10 Creatinine 0.90 Estimated GFR (MDRD) > 60 Glucose 118 H POC Capillary Glucose 79 Calculated Osmolality 264 L Calcium 8.1 L Magnesium 1.80 Prealbumin Ur Random Microalbumin - Assessment and Plan (1) Nausea and vomiting Acute R11.2 - NAUSEA WITH VOMITING, UNSPECIFIED Present on Admission: Yes unspecified non-intractable R11.2 - Nausea with vomiting, unspecified (2) Gastric outlet obstruction Acute K31.1 - ADULT HYPERTROPHIC PYLORIC STENOSIS Present on Admission: Yes (3) Hyperlipidemia Chronic E78.5 - HYPERLIPIDEMIA, UNSPECIFIED Present on Admission: Yes mixed hyperlipidemia E78.2 - Mixed hyperlipidemia (4) Hypertension Chronic I10 - ESSENTIAL (PRIMARY) HYPERTENSION Present on Admission: Yes essential hypertension I10 - Essential (primary) hypertension Plan: S/P G-Tube and J-tube placement. Will clamp NGT today and see if he tolerates this well. Will arrange for him to give feeds via J-tube after discharge home. Try IV Tylenol for pain today. Path pending.
[2016-09-27] MEDS ORDERED: Acetaminophen, Intravenous 1,000 MG/100 ML IVBOT IV ONE (14:30)
[2016-09-27] MEDS ORDERED: Pharmacy Discontinue All Previous Acetaminophen Orders SCH (15:00)
--- NOTE | 2016-09-27 15:45 | GENMEDPROG ---
Subjective Note: Patient still with some discomfort. Lying very still in the bed. He is pleasant cooperative and conversational. Notes Reviewed: Yes Events from last night noted and discussed with Clinical Staff Current Medication List: Reviewed Currently: Reports: Tobacco Use/Hx (Smokes a half pack cigarettes a day), Abdominal Pain. Denies: SOB, Diarrhea, Nausea and Vomiting DVT Prophylaxis: Yes - Physical Examination Vital Signs and I&O: Last Vital Signs Temp 98.4 F 09/27/16 13:54 Pulse 70 09/27/16 13:54 Resp 18 09/27/16 13:54 BP 138/71 09/27/16 13:54 Pulse Ox 96 09/27/16 13:54 Oxygen Pulse Oxygen Saturation 96 O2 Device Room Air Oxygen Flow Rate 2 Fraction of Inspired Oxygen ( 100 FIO2) Intake & Output 09/24/16 09/25/16 09/26/16 09/27/16 23:59 23:59 23:59 23:59 Intake Total 2869 3365 2591 1874 Output Total 3250 2275 1920 2055 Balance -381 1090 671 -181 Patient's weight 96.7 kg 96.7 kg 95.283 kg 95.906 kg General: Alert, Oriented x3, Cooperative HEENT: Normal, EOMI, Anicteric Sclera Lymphatics: Normal (No lymph node swelling or pain.) Respiratory: Normal - CTA. negative: Rales, Retractions, Wheezes Cardiovascular: Regular rate and rhythm, No Gallops,Rubs/Murmurs GI: Normal bowel sounds (normal active sounds), Soft (non-distended), Non tender , No hepatospenomegaly, No masses Extremities/Musculoskeletal: negative: Swelling, Edema, Clubbing, Cyanosis Skin: Warm,Dry and Intact, No rashes Neurological: Strength at 5/5 X4 ext (Motor 5/5 throughout.), Normal tone, Cranial nerves 3-12 NL ( 2-12 grossly intact.) Psych/Mental Status: Cooperative. negative: Confabulating, Confused Lab/DI/Studies Reviewed: Laboratory Results - last 24 hr 09/25/16 09/26/16 09/26/16 08:18 04:55 16:47 WBC RBC Hgb Hct MCV MCH MCHC RDW Plt Count MPV Neut % (Auto) Lymph % (Auto) [place] % (Auto) Eos % (Auto) Baso % (Auto) Absolute Neuts (auto) Absolute Lymphs (auto) Sodium Potassium Chloride Carbon Dioxide Anion Gap BUN Creatinine Estimated GFR (MDRD) Glucose POC Capillary Glucose 109 H Calculated Osmolality Calcium Magnesium Prealbumin 15 Ur Random Microalbumin 8.7 09/27/16 09/27/16 09/27/16 01:03 05:51 06:00 WBC RBC Hgb Hct MCV MCH MCHC RDW Plt Count MPV Neut % (Auto) Lymph % (Auto) [place] % (Auto) Eos % (Auto) Baso % (Auto) Absolute Neuts (auto) Absolute Lymphs (auto) Sodium 137 Potassium 3.7 Chloride 106 Carbon Dioxide 23 Anion Gap 12 BUN 10 Creatinine 0.90 Estimated GFR (MDRD) > 60 Glucose 118 H POC Capillary Glucose 104 H 118 H Calculated Osmolality 264 L Calcium 8.1 L Magnesium 1.80 Prealbumin Ur Random Microalbumin 09/27/16 09/27/16 06:00 11:00 WBC 7.8 RBC 4.45 L Hgb 13.7 L Hct 40.2 L MCV 90 MCH 30.7 MCHC 34.1 RDW 13.4 Plt Count 127 L MPV 10.8 H Neut % (Auto) 66.2 Lymph % (Auto) 24.3 [place] % (Auto) 6.3 Eos % (Auto) 2.9 Baso % (Auto) 0.3 Absolute Neuts (auto) 5.15 Absolute Lymphs (auto) 1.87 Sodium Potassium Chloride Carbon Dioxide Anion Gap BUN Creatinine Estimated GFR (MDRD) Glucose POC Capillary Glucose 79 Calculated Osmolality Calcium Magnesium Prealbumin Ur Random Microalbumin - Assessment (1) Gastric outlet obstruction Acute K31.1 - ADULT HYPERTROPHIC PYLORIC STENOSIS Comment/Plan: Patient status post surgery for gastric outlet obstruction with placement of PEG tube. Await pathology results. (2) Nausea and vomiting Acute R11.2 - NAUSEA WITH VOMITING, UNSPECIFIED Qualifiers: Vomiting type: unspecified Vomiting Intractability: non-intractable Qualified Code(s): R11.2 - Nausea with vomiting, unspecified Comment/Plan: Related to his gastric outlet obstruction. Improved after surgery. (3) Hypertension Chronic I10 - ESSENTIAL (PRIMARY) HYPERTENSION Qualifiers: Hypertension type: essential hypertension Qualified Code(s): I10 - Essential (primary) hypertension Comment/Plan: Continuation of previous medications for hypertension. (4) Hyperlipidemia Chronic E78.5 - HYPERLIPIDEMIA, UNSPECIFIED Qualifiers: Hyperlipidemia type: mixed hyperlipidemia Qualified Code(s): E78.2 - Mixed hyperlipidemia Comment/Plan: Continue previous home treatment (5) Tobacco abuse Chronic Z72.0 - TOBACCO USE Comment/Plan: Discussion on cessation has taken place and will start on nicotine patch. - Plan Management per Dr. Aleman Disposition Plan: Likely home Case Care Discussed with: Patient, Consultants, Family, Nursing Staff, Physical Therapy, Resource Management, Respiratory Therapy, Research/Program Director Education/Counseling Given To: Patient Education/Counseling Given Regarding: Diagnosis, Treatment, Prognosis, Follow Up , Disposition Plan Total Time: 45 minutes Critical Care: No Couseling Time (>50% in counseling/coordination): No
[2016-09-27] MEDS ORDERED: [UNRECOGNIZED DRUG - REMARK] XX SCH (16:00)
[2016-09-27] MEDS: FAT EMULSION 20% 250 ML IV SCH (16:03)
[2016-09-27] MEDS: NICOTINE 21 MG PATCH TOP SCH (17:34)
[2016-09-27] MEDS: ENOXAPARIN 40 MG/0.4 ML PFS SQ SCH (17:35)
[2016-09-27] MEDS: Acetaminophen, Intravenous 1,000 MG/100 ML IVBOT IV SCH (19:40)
[2016-09-28] MEDS ORDERED: POTASSIUM CHLORIDE IV ONE ×12 (01:00→18:30)
[2016-09-28] MEDS ORDERED: [UNRECOGNIZED DRUG - OTHER] IV ONE ×12 (01:00→18:30)
[2016-09-28] MEDS ORDERED: SODIUM CHLORIDE IV ONE ×12 (01:00→18:30)
[2016-09-28] MEDS ORDERED: MAGNESIUM SULFATE IV ONE ×12 (01:00→18:30)
[2016-09-28] MEDS: Acetaminophen, Intravenous 1,000 MG/100 ML IVBOT IV SCH ×3 (01:08→15:51)
[2016-09-28] MEDS: PANTOPRAZOLE 40 MG VIAL IV SCH ×2 (05:05→15:52)
[2016-09-28] MEDS: Metronidazole 500 mg/100 ml 500 MG/100 ML RTU IV SCH ×3 (05:05→15:52)
[2016-09-28] MEDS: PIPERACILLIN AND TAZOBACTAM 3.375 GM in D5W 100 ML IV SCH ×3 (05:25→16:17)
[2016-09-28] MEDS: MORPHINE 2 MG/ML INJECTION IV PRN ×2 (05:31→13:02)
[2016-09-28] MEDS: ONDANSETRON HCL 4 MG/2 ML VIAL IV PRN (05:31)
[2016-09-28] MEDS: HYDROCHLOROTHIAZIDE 12.5 MG CAP PO SCH (08:27)
[2016-09-28] MEDS: LISINOPRIL 10 MG TAB PO SCH (08:27)
[2016-09-28 08:34] LABS: BLOOD UREA NITROGEN 11 MG/DL (9-20); CALCULATED OSMOLALITY 266 MOs/Kg (270-290); CHLORIDE 107 mEq/L (98-107); GLUCOSE 111 MG/DL (70-99); SODIUM LEVEL 138 mEq/L (137-146)
[2016-09-28 11:46] VITALS: TEMP 97.3
[2016-09-28] MEDS: NS/KCl 20 mEq 1,000 ML IV SCH (12:08)
[2016-09-28] MEDS ORDERED: NS 500 ML IV ONE (13:11)
--- NOTE | 2016-09-28 13:15 | PCM.DCS92 ---
- Final/Secondary Discharge Diagnosis (1) Nausea and vomiting Acute R11.2 - NAUSEA WITH VOMITING, UNSPECIFIED Present on Admission: Yes unspecified non-intractable R11.2 - Nausea with vomiting, unspecified (2) Gastric outlet obstruction Acute K31.1 - ADULT HYPERTROPHIC PYLORIC STENOSIS Present on Admission: Yes (3) Hyperlipidemia Chronic E78.5 - HYPERLIPIDEMIA, UNSPECIFIED Present on Admission: Yes mixed hyperlipidemia E78.2 - Mixed hyperlipidemia (4) Hypertension Chronic I10 - ESSENTIAL (PRIMARY) HYPERTENSION Present on Admission: Yes essential hypertension I10 - Essential (primary) hypertension Discharge Disposition: Discharge w/ Home Health Discharge Condition: Stable Cognitive Discharge Status: Unimpaired Fuctional Discharge Status: Independent Physician Follow up/Referrals: Rohan Aleman MD [Staff Physician] - Call for Appointment (make appointment for next week.) Home Medications/ New Prescriptions: No Action Lisinopril/Hydrochlorothiazide [Lisinopril-Hctz 10-12.5 mg Tab] 1 tab PO DAILY Diet Order: [place] Tube feeds via J-tube. As already instructed to patient and family. Diet at Discharge: Tube Feeds Activity: As Tolerated, No Heavy Lifting - DC Summary Notes Hospital Course Note:: Discharge summary on patient named KARYN DE LA VEGA admitted to [facility] on 09/21/16 by Marcos Jimenez MD. Date of discharge is 09/28/16. Patient was admitted with nausea and vomiting. Had CT and EGD which showed GOO. HE was decompressed with NGT. During initial and repeat EGD he had biopsies done. These showed Atypia , metaplasia, his H. Pylori was negative. Despite this I felt this was suspicious for underlying malignancy. A laparoscopy was done and biopsies of his pylorus ( which was firm and fixed to the surrounding tissue) was done. Also an excisional LN biopsy was done. this LN was near the pylorus and pancreatic head. At this time we placed a gastrostomy tube for decompression and a feeding jejunostomy tube. Path is still pending. We will have patient give himself tube feeds at home while we wait for results of biopsies and LN. Further treatment will depend on final path. Patient is stable at discharge. - Physical Exam Vital Signs: Initial Vitals Temperature 97.7 F 09/21/16 12:19 Pulse Rate 98 09/21/16 12:19 Respiratory Rate 18 09/21/16 12:19 Blood Pressure 132/84 09/21/16 12:19 Pulse Oxygen Saturation 94 09/21/16 12:19 Constitutional: No apparent distress, Alert Oriented to: Time, Person, Place - HEENT Head: Normal Respiratory: Normal - CTA Cardiovascular: Normal - GI Auscultation: Normal Palpation: Normal Tenderness: Mild. negative: Guarding, Rebound Wade's Sign: Negative - Musculoskeletal Extremities: Normal - Integumentary Skin: Normal
[2016-09-28 13:41] VITALS: BP 142/84; PULSE 79
[2016-09-28] MEDS ORDERED: SODIUM CHLORIDE 0.9% 5 ML FLUSH FLUSH PRN (15:44)
[2016-09-28] MEDS: FAT EMULSION 20% 250 ML IV SCH (15:52)
--- NOTE | 2016-09-28 15:58 | PCM.GIPROG ---
Progress Note (GI) Chief Complaint: Patient is status post PEG tube and J-tube placement. The full-thickness gastric biopsies are pending. Patient doing very well. No nausea vomiting diarrhea constipation or any abdominal pain. - Physical Exam Vital Signs: Temperature: 97.3 F (09/28/16 11:44) HR: 79 (09/28/16 13:40) RR: 16 (09/28/16 13:40) BP: 142/84 (09/28/16 13:40) Pulse Ox: 97 (09/28/16 13:40) General: Alert, Oriented x3, Cooperative, No acute distress HEENT: Normal, Other (No Jaundice). negative: Pallor Cardiovascular: Normal S1, Normal S2, Other (No S3 or S4.). negative: No murmurs Gastrointestinal: Soft, Bowel Sounds (Normal), Other (Surgical incisions with clips). negative: Tender, Hepatosplenomegaly Extremities: Normal pulses. negative: Swelling, Edema Skin: Warm,Dry and Intact Neurological: Normal speech, Other (No focal neurologic deficits.) Psych/Mental Status: Normal Affect, Cooperative Result Diagrams: 09/27/16 06:00 09/28/16 06:34 - Impression and Plan (1) Gastric outlet obstruction Acute K31.1 - ADULT HYPERTROPHIC PYLORIC STENOSIS Present on Admission: Yes Comment: Patient status post surgery for gastric outlet obstruction with placement of PEG tube and J-tube for feeds. Await pathology results. (2) Nausea and vomiting Resolved R11.2 - NAUSEA WITH VOMITING, UNSPECIFIED Present on Admission: Yes unspecified non-intractable R11.2 - Nausea with vomiting, unspecified Comment: Related to his gastric outlet obstruction. Improved after surgery. (3) Hyperlipidemia Chronic E78.5 - HYPERLIPIDEMIA, UNSPECIFIED Present on Admission: Yes mixed hyperlipidemia E78.2 - Mixed hyperlipidemia Comment: Continue previous home treatment (4) Hypertension Chronic I10 - ESSENTIAL (PRIMARY) HYPERTENSION Present on Admission: Yes essential hypertension I10 - Essential (primary) hypertension Comment: Continuation of previous medications for hypertension. (5) Tobacco abuse Chronic Z72.0 - TOBACCO USE Comment: Discussion on cessation has taken place and will start on nicotine patch. Plan: 1. await pathology 2. Can start feeding through the J-tube 3. Suction through the G-tube 4. Encourage ambulation 5. Follow-up in case of any problems
[2016-09-28] MEDS: NICOTINE 21 MG PATCH TOP SCH (16:17)
--- NOTE | 2016-09-28 17:02 | GENMEDPROG ---
Subjective Note: Patient with no new complaints. Has started receiving bolus feedings. Notes Reviewed: Yes Events from last night noted and discussed with Clinical Staff Current Medication List: Reviewed Currently: Reports: Tobacco Use/Hx (Smokes a half pack cigarettes a day), Abdominal Pain. Denies: SOB, Diarrhea, Nausea and Vomiting DVT Prophylaxis: Yes - Physical Examination Vital Signs and I&O: Last Vital Signs Temp 97.3 F L 09/28/16 11:44 Pulse 79 09/28/16 13:40 Resp 16 09/28/16 13:40 BP 142/84 09/28/16 13:40 Pulse Ox 97 09/28/16 13:40 Oxygen Pulse Oxygen Saturation 97 O2 Device Room Air Oxygen Flow Rate 2 Fraction of Inspired Oxygen ( 100 FIO2) Intake & Output 09/25/16 09/26/16 09/27/16 09/28/16 23:59 23:59 23:59 23:59 Intake Total 3365 2591 2887 3721 Output Total 2275 1920 2805 1005 Balance 1090 266 41 9823 Patient's weight 96.7 kg 95.283 kg 95.906 kg 96.644 kg General: Alert, Oriented x3, Cooperative, No acute distress HEENT: Normal (Normocephalic, atraumatic;EOMI.Sclera white, Nares patent, without discharge or bleeding. No oropharyngeal lesions or erythema. Mucous membranes are dry.) Neck: Non-tender, Full range of motion, Normal Trachea alignment, Normal inspection (No cervical lymphadenopathy. No supraclavicular lymphadenopathy.), No Masses palpable, Supple Lymphatics: Normal (No lymph node swelling or pain.) Respiratory: Normal - CTA (Clear to auscultation bilaterally. No wheezing, rales , rhonchi. Chest wall movements are symmetric. No use of accessory muscles to breathe.) Cardiovascular: Regular rate and rhythm (No bradycardia or tachycardia), Normal S1, No Gallops,Rubs/Murmurs, Normal S2, Good Pedal Pulses (DP pulses 2+ bilaterally) GI: Normal bowel sounds (normal active sounds), Soft (non-distended), Non tender , No hepatospenomegaly, No masses Extremities/Musculoskeletal: Normal pulses. negative: Swelling, Edema Skin: Warm,Dry and Intact Neurological: Strength at 5/5 X4 ext (Motor 5/5 throughout.), Normal tone, Cranial nerves 3-12 NL ( 2-12 grossly intact.) Psych/Mental Status: Appropriate, Normal Affect Lab/DI/Studies Reviewed: Abnormal Lab Results 09/28/16 06:34 Glucose 111 H Calculated Osmolality 266 L Calcium 8.0 L - Assessment (1) Gastric outlet obstruction Acute K31.1 - ADULT HYPERTROPHIC PYLORIC STENOSIS Comment/Plan: Patient status post surgery for gastric outlet obstruction with placement of PEG tube and J-tube for feeds. Await pathology results. Start feeding (2) Nausea and vomiting Resolved R11.2 - NAUSEA WITH VOMITING, UNSPECIFIED Qualifiers: Vomiting type: unspecified Vomiting Intractability: non-intractable Qualified Code(s): R11.2 - Nausea with vomiting, unspecified Comment/Plan: Related to his gastric outlet obstruction. Improved after surgery. (3) Hypertension Chronic I10 - ESSENTIAL (PRIMARY) HYPERTENSION Qualifiers: Hypertension type: essential hypertension Qualified Code(s): I10 - Essential (primary) hypertension Comment/Plan: Continuation of previous medications for hypertension. (4) Hyperlipidemia Chronic E78.5 - HYPERLIPIDEMIA, UNSPECIFIED Qualifiers: Hyperlipidemia type: mixed hyperlipidemia Qualified Code(s): E78.2 - Mixed hyperlipidemia Comment/Plan: Continue previous home treatment (5) Tobacco abuse Chronic Z72.0 - TOBACCO USE Comment/Plan: Discussion on cessation has taken place and will start on nicotine patch. - Plan Management per Dr. Aleman Disposition Plan: Likely home Case Care Discussed with: Patient, Nursing Staff Education/Counseling Given To: Patient Education/Counseling Given Regarding: Diagnosis, Treatment, Prognosis, Disposition Plan Total Time: 45 min Critical Care: No Couseling Time (>50% in counseling/coordination): No
[2016-09-28] MEDS ORDERED: SODIUM CHLORIDE 0.9% 5 ML FLUSH FLUSH SCH (18:00)
[2016-09-28] MEDS ORDERED: ACETAMINOPHEN 325 MG/TAB TABLET PO SCH (22:00)
== END 2016-09-28 16:56 | disposition home or self-care (01) | DRG 375 ==
LOC: SPU 11:47 → TUOBSINP 16:00 → MPS3 09-22 15:30
PROVIDERS: ADMIT Internal Medicine Gastroenterology; ATTEND Hospitalist
PROC: 0DB68ZX Excision of Stomach, Via Natural or Artificial Opening Endoscopic, Diagnostic (ICD-10-PCS; principal; 2016-09-22)
PROC: 05HB33Z Insertion of Infusion Device into Right Basilic Vein, Percutaneous Approach (ICD-10-PCS; 2016-09-23)
PROC: B54MZZA Ultrasonography of Right Upper Extremity Veins, Guidance (ICD-10-PCS; 2016-09-23)
PROC: 0DB74ZX Excision of Stomach, Pylorus, Percutaneous Endoscopic Approach, Diagnostic (ICD-10-PCS; 2016-09-26)
PROC: 0DH64UZ Insertion of Feeding Device into Stomach, Percutaneous Endoscopic Approach (ICD-10-PCS; 2016-09-26)
PROC: 0DHA4UZ Insertion of Feeding Device into Jejunum, Percutaneous Endoscopic Approach (ICD-10-PCS; 2016-09-26)
DX: C16.4 Malignant neoplasm of pylorus (principal); K31.1 Adult hypertrophic pyloric stenosis; I10 Essential (primary) hypertension; K21.9 Gastro-esophageal reflux disease without esophagitis; R11.2 Nausea with vomiting, unspecified; R73.9 Hyperglycemia, unspecified; E78.2 Mixed hyperlipidemia; E66.9 Obesity, unspecified; F17.210 Nicotine dependence, cigarettes, uncomplicated; Z79.899 Other long term (current) drug therapy; K20.9 Esophagitis, unspecified; Z71.6 Tobacco abuse counseling; Z86.010 Personal history of colon polyps
CPT/HCPCS: 36569; 43239; 76937; 77001; 80048; 80053; 82043; 82962; 83036; 83615; 83690; 83735; 84100; 84134; 84478; 85025; 96372; 99152; 99406; A9153; G0237; J0131; J0330; J0610; J1170; J1642; J1650; J2001; J2250; J2270; J2405; J2543; J2550; J2710; J3010; J3475; J3480; J3490; J7030; J7040; J7060; S0020; S0164

== ENCOUNTER 2016-10-02 19:38 | Observation (INO) | payer OTHER ==
[2016-10-02 19:49] VITALS: BMI 26.8
[2016-10-02] MEDS ORDERED: NS 1,000 ML IV ONE (20:31)
[2016-10-02 21:00] LABS: LEUKOCYTES/URINE NEG (NEGATIVE); NITRITE/URINE NEG (NEGATIVE); RBC/URINE 0-2 (0-2); URINE OCCULT BLOOD NEG (NEG/TRACE); WBC/URINE 0-2 (0-2)
[2016-10-02 21:06] LABS: AUTOMATED BASOPHIL 0.3 % (0-2); AUTOMATED EOSINOPHIL 2.2 % (0-5); AUTOMATED LYMPH 15.8 % (17-44); AUTOMATED NEUTROPHIL 75.7 % (45-76); MPV 10.1 fL (7.4-10.4)
[2016-10-02 21:17] LABS: BLOOD UREA NITROGEN 36 MG/DL (9-20); CALCULATED OSMOLALITY 272 MOs/Kg (270-290); CHLORIDE 102 mEq/L (98-107); GLUCOSE 96 MG/DL (70-99); SODIUM LEVEL 137 mEq/L (137-146); TOTAL PROTEIN 7.5 G/DL (6.3-8.2)
[2016-10-02] MEDS ORDERED: ACETAMINOPHEN 650 MG SUPP PR PRN (21:42)
[2016-10-02] MEDS ORDERED: ONDANSETRON HCL 4 MG/2 ML VIAL IV PRN (21:43)
[2016-10-02] MEDS ORDERED: ACETAMINOPHEN 325 MG/TAB TABLET PO PRN (21:43)
[2016-10-02] MEDS ORDERED: MORPHINE 2 MG/ML INJECTION IV PRN ×4 (21:44→21:45)
[2016-10-02] MEDS ORDERED: PROMETHAZINE 25 MG/ML VIAL IV PRN (21:44)
--- NOTE | 2016-10-02 22:01 | HISTPHYS ---
- History of Present Illness 60 YO WM with GOO. Had G-tube placed for decompression and J-Tube for nutritional support. He has not had any diarrhea, no dumping, no nausea, no vomiting, no fever, No pain. was concerned because he has been tired. He came to ER and had labs drawn. He is stable - Medical History Cardiac History: Reports: Hypertension, Hypercholesterolemia Respiratory History: Reports: No Significant History GI/ History: Reports: Gastroesophageal Reflux Musculoskeletal History: Reports: No Significant History Systemic History: Reports: No Significant History Neurological History: Reports: No Significant History Psychological History: Reports: No Significant History - Medictions/Allergies Allergies No Known Allergies Allergy (Verified 10/02/16 20:20) Home Medications Lisinopril/Hydrochlorothiazide [Lisinopril-Hctz 10-12.5 mg Tab] 1 tab PO DAILY 09/21/16 Acetaminophen with Codeine [Tylenol with Codeine Elixir] 5 ml PEG Q4H PRN - Social History Smoking Status: Former smoker - Review of Systems Constitutional: Fatigue, Weakness. negative: Chills, Fever Eyes: negative: Blurred Vision, Pain, Photophobia Ears: negative: Hearing Loss, Tinnitus Nose: Congestion Mouth: negative: Pain, Dry Mouth Throat/Neck: negative: Swelling, Hoarseness Respiratory: Cough. negative: Shortness of Breath, Wheezing Cardiovascular: negative: Chest Pain, Palpitations Gastrointestinal: negative: Nausea, Vomiting, Abdominal Pain, Diarrhea, Constipation, Melena, Hematochezia, Dysphasia, Heartburn Genitourinary: negative: Dysuria, Hematuria Neurological: Weakness. negative: Headache, Numbness, Seizure Musculoskeletal:: Weakness. negative: Joint Pain, Muscle Pain, Joint Swelling Integumentary: negative: Bruising, Itching, Wound Allergic/Immunologic: negative: Hives, Itching Hematologic: negative: Easy Bruising, Easy Bleeding Endocrine: No Symptoms Reported Psychiatric: negative: Anxiety, Depression - Physical Exam Vital Signs: Initial Vitals Temperature 98.3 F 10/02/16 19:45 Pulse Rate 106 10/02/16 19:45 Respiratory Rate 20 10/02/16 19:45 Blood Pressure 130/71 10/02/16 19:45 Pulse Oxygen Saturation 98 10/02/16 19:45 Constitutional: No apparent distress, Alert. negative: Confused Oriented to: Time, Person, Place - HEENT Head: Normal Oropharynx: negative: Exudate TMJ: negative: Crepitance, Tender Respiratory: Normal - CTA. negative: Rales, Rhonchi Cardiovascular: negative: Bradycardia, Tachycardia, Irregular - GI Auscultation: Normal Palpation: Normal Tenderness: Non tender. negative: Guarding, Rebound - Musculoskeletal Extremities: Normal. negative: Clubbing, Cyanosis, Edema - Integumentary Skin: Normal, Warm, Dry Lymphatics: negative: Adenopathy - Assessment/Plan (1) Gastric outlet obstruction K31.1 - ADULT HYPERTROPHIC PYLORIC STENOSIS Chronic Present on Admission: Yes (2) Viral syndrome B34.9 - VIRAL INFECTION, UNSPECIFIED Acute Present on Admission: Yes Plan: Will admit patient. Check rapid flu test to see if this a viral syndrome as he is neither malnourished (albumin 4), nor dehydrated. His electrolytes and LFT's are normal.Pathology of his recent biopsy discussed with him and his .
[2016-10-02] MEDS: [UNRECOGNIZED DRUG - NUTRITION] PEG SCH (23:02)
[2016-10-03] MEDS: [UNRECOGNIZED DRUG - NUTRITION] PEG SCH ×3 (03:11→10:36)
[2016-10-03] MEDS ORDERED: D5W/NS 1,000 ML IV ONE (11:00)
[2016-10-03] MEDS ORDERED: [UNRECOGNIZED DRUG - NUTRITION] PEG SCH (11:03)
[2016-10-03] MEDS ORDERED: Vaccine Screening Complete SCH (14:00)
[2016-10-03 15:59] VITALS: BP 134/72; PULSE 70; TEMP 98.6
--- NOTE | 2016-10-03 18:38 | PCM.DCS92 ---
- Final/Secondary Discharge Diagnosis (1) Gastric outlet obstruction Chronic K31.1 - ADULT HYPERTROPHIC PYLORIC STENOSIS Present on Admission: Yes Discharge Disposition: Home Discharge Condition: Stable Cognitive Discharge Status: Unimpaired Fuctional Discharge Status: Independent Physician Follow up/Referrals: None,No Provider [Primary Care Provider] - One Week Home Medications/ New Prescriptions: No Action Lisinopril/Hydrochlorothiazide [Lisinopril-Hctz 10-12.5 mg Tab] 1 tab PO DAILY Acetaminophen with Codeine [Tylenol with Codeine Elixir] 5 ml PEG Q4H PRN PRN Reason: Pain Diet at Discharge: Tube Feeds Activity: As Tolerated, No Heavy Lifting - DC Summary Notes Hospital Course Note:: Discharge summary on patient named KARYN DE LA EVGA admitted to [facility] on 10/02/16 by Rohan Aleman MD. Date of discharge is 10/03/16. Patient had G-t and J-t placed last week for his GOO. He has been doing well but felt he was weak. Came to ER and had workup which showed no evidence of malnutrition or electrolyte abnormality. Most likely viral syndrome. Feels better today. Have made arrangements for him to see hepatobiliary specialist Monday. Patient stable. - Physical Exam Vital Signs: Initial Vitals Temperature 98.3 F 10/02/16 19:45 Pulse Rate 106 10/02/16 19:45 Respiratory Rate 20 10/02/16 19:45 Blood Pressure 130/71 10/02/16 19:45 Pulse Oxygen Saturation 98 10/02/16 19:45 Constitutional: Alert. negative: Confused, Distress Oriented to: Time, Person, Place - HEENT Head: Normal Respiratory: Normal - CTA. negative: Rales, Rhonchi, Wheezes Cardiovascular: Normal. negative: Bradycardia, Tachycardia, Irregular - GI Auscultation: Normal Palpation: Normal Tenderness: Non tender. negative: Guarding, Rebound Wade's Sign: Negative - Musculoskeletal Extremities: Normal. negative: Calf Tenderness, Clubbing, Cyanosis - Integumentary Skin: Normal, Warm, Dry
--- NOTE | 2016-10-06 06:57 | EDPRACDOC ---
- General Information Chief Complaint: Generalized Weakness Stated Complaint: TOLD TO COME OUT BY DR. BOATENG Time Seen by Provider: 10/02/16 20:30 Information Source: Patient, Family Home Medications: Home Medications Lisinopril/Hydrochlorothiazide [Lisinopril-Hctz 10-12.5 mg Tab] 1 tab PO DAILY 09/21/16 Acetaminophen with Codeine [Tylenol with Codeine Elixir] 5 ml PEG Q4H PRN Allergies/Adverse Reactions: Allergies Allergy/AdvReac Type Severity Reaction Status Date / Time No Known Allergies Allergy Verified 10/02/16 20:20 - History of Present Illness Onset: [employer] HPI: Pt with colonic problems for several months, was recently in the hospital for a J tube insertion due to outlet obstruction by Dr. Aleman. PT has felt weaker, not sleeping, feels dehydrated, not able to eat much, taking muscle milk by J tube, water by mouth in small sips. No fevers, chills. Some vague "gas pains" intermittently today. Pt was told to come to the ED for admit by Dr. Aleman after spouse spoke to him tonight. ED Past Medical History - History Reviewed Yes Nurses notes reviewed and agree except as marked - Patient Medical History Cardiac History: Reports: Hypertension, Hypercholesterolemia GI/ History: Reports: Gastroesophageal Reflux - Social Medical History Smoking Status: Former smoker EDM Review of Systems - Review of Systems ROS Negative Except as Marked: Yes All systems reviewed and were negative except as marked Constitutional: Fatigue, Loss of Appetite, Weakness, Weight loss. negative: Diaphoresis Mouth: Dry Mouth Respiratory: negative: Cough, Shortness of Breath Cardiovascular: negative: Chest Pain Gastrointestinal: Constipation, Pain. negative: Nausea, Vomiting Neurological: No Symptoms Reported, Weakness. negative: Headache, Speech Difficulty - Physical Exam Constitutional: No apparent distress, Alert, Well nourished. negative: Confused , Distress, Decreased Consciousness, Well appearing Oriented to: Time, Person, Place Last recorded Vital Signs: Last Vital Signs Temp 98.3 F 10/02/16 19:45 Pulse 106 10/02/16 19:45 Resp 20 10/02/16 19:45 BP 130/71 10/02/16 19:45 Pulse Ox 98 10/02/16 19:45 Oxygen Pulse Oxygen Saturation 98 O2 Device Room Air Oxygen Flow Rate Fraction of Inspired Oxygen ( FIO2) - Respiratory/Cardiovascular Respiratory: Normal - CTA Cardiovascular: Normal - GI Auscultation: Decreased Tenderness: Mild, LLQ. negative: Guarding, Rebound - Integumentary Skin: Normal, Dry - Neurologic Memory Impaired: Normal Motor Function: Normal (Normal tone, Pulses 2+ No cyanosis or edema, FROM) Cranial Nerve: Normal (CN II-X11 intact sensation, strength 5/5) Mood Description: Normal - Differential Diagnosis Other (dehydration, electrolyte abn, post surgery pain) - Results 10/02/16 20:45 10/02/16 20:45 WBC 13.2 xk/uL (3.8-10.8) H 10/02/16 20:45 RBC 4.91 xM/uL (4.70-6.10) 10/02/16 20:45 Hgb 14.9 g/dL (14.0-18.0) 10/02/16 20:45 Hct 44.7 % (42-52) 10/02/16 20:45 MCV 91 fL (80-94) 10/02/16 20:45 MCH 30.3 pg (27-32) 10/02/16 20:45 MCHC 33.3 g/dl (33-36) 10/02/16 20:45 RDW 13.6 % (11.5-14.5) 10/02/16 20:45 Plt Count 191 xk/uL (130-400) 10/02/16 20:45 MPV 10.1 fL (7.4-10.4) 10/02/16 20:45 Neut % (Auto) 75.7 % (45-76) 10/02/16 20:45 Lymph % (Auto) 15.8 % (17-44) L 10/02/16 20:45 [place] % (Auto) 6.0 % (3-10) 10/02/16 20:45 Eos % (Auto) 2.2 % (0-5) 10/02/16 20:45 Baso % (Auto) 0.3 % (0-2) 10/02/16 20:45 Absolute Neuts (auto) 9.90 xk/uL (1.7-8.2) H 10/02/16 20:45 Absolute Lymphs (auto) 1.98 xk/uL (0.65-4.75) 10/02/16 20:45 Sodium 137 mEq/L (137-146) 10/02/16 20:45 Potassium 4.5 mEq/L (3.5-5.1) 10/02/16 20:45 Chloride 102 mEq/L (98-107) 10/02/16 20:45 Carbon Dioxide 24 mMOL/L (22-33) 10/02/16 20:45 Anion Gap 16 mEq/L (8-16) 10/02/16 20:45 BUN 36 MG/DL (9-20) H 10/02/16 20:45 Creatinine 0.80 MG/DL (0.66-1.25) 10/02/16 20:45 Estimated GFR (MDRD) > 60 mL/min (>=60) 10/02/16 20:45 Glucose 96 MG/DL (70-99) 10/02/16 20:45 Calculated Osmolality 272 MOs/Kg (270-290) 10/02/16 20:45 Lactic Acid 0.7 mEq/L (0.7-2.1) 10/02/16 20:45 Calcium 9.0 MG/DL (8.4-10.2) 10/02/16 20:45 Total Bilirubin 0.5 MG/DL (0.2-1.3) 10/02/16 20:45 AST 26 IU/L (17-59) 10/02/16 20:45 ALT 43 IU/L (21-72) 10/02/16 20:45 Alkaline Phosphatase 83 IU/L (38-126) 10/02/16 20:45 Total Protein 7.5 G/DL (6.3-8.2) 10/02/16 20:45 Albumin 4.0 G/DL (3.5-5.0) 10/02/16 20:45 Lipase 65 U/L (23-300) 10/02/16 20:45 Urine Color Yellow 10/02/16 20:50 Urine Clarity Clear 10/02/16 20:50 Urine pH 5.0 (5.0-8.0) 10/02/16 20:50 Ur Specific [place] 1.030 (1.003-1.035) 10/02/16 20:50 Urine Protein Neg (NEG/TRACE) 10/02/16 20:50 Urine Glucose (UA) Neg (NEGATIVE) 10/02/16 20:50 Urine Ketones Neg (NEGATIVE) 10/02/16 20:50 Urine Occult Blood Neg (NEG/TRACE) 10/02/16 20:50 Urine Nitrite Neg (NEGATIVE) 10/02/16 20:50 Urine Bilirubin Neg (NEGATIVE) 10/02/16 20:50 Urine Urobilinogen 0.2 MG/DL (0-1) 10/02/16 20:50 Ur Leukocyte Esterase Neg (NEGATIVE) 10/02/16 20:50 Urine RBC 0-2 (0-2) 10/02/16 20:50 Urine WBC 0-2 (0-2) 10/02/16 20:50 Urine Bacteria Few (NEG/FEW) 10/02/16 20:50 Hyaline Casts 0-2 (0-2) 10/02/16 20:50 Urine Mucus Occ (NEG/OCC) 10/02/16 20:50 Lab Results 10/02/16 10/02/16 10/02/16 20:50 20:45 20:45 WBC 13.2 H RBC 4.91 Hgb 14.9 Hct 44.7 MCV 91 MCH 30.3 MCHC 33.3 RDW 13.6 Plt Count 191 MPV 10.1 Neut % (Auto) 75.7 Lymph % (Auto) 15.8 L [place] % (Auto) 6.0 Eos % (Auto) 2.2 Baso % (Auto) 0.3 Absolute Neuts (auto) 9.90 H Absolute Lymphs (auto) 1.98 Sodium Potassium Chloride Carbon Dioxide Anion Gap BUN Creatinine Estimated GFR (MDRD) Glucose Calculated Osmolality Lactic Acid 0.7 Calcium Total Bilirubin AST ALT Alkaline Phosphatase Total Protein Albumin Lipase Urine Color Yellow Urine Clarity Clear Urine pH 5.0 Ur Specific [place] 1.030 Urine Protein Neg Urine Glucose (UA) Neg Urine Ketones Neg Urine Occult Blood Neg Urine Nitrite Neg Urine Bilirubin Neg Urine Urobilinogen 0.2 Ur Leukocyte Esterase Neg Urine RBC 0-2 Urine WBC 0-2 Urine Bacteria Few Hyaline Casts 0-2 Urine Mucus Occ 10/02/16 20:45 WBC RBC Hgb Hct MCV MCH MCHC RDW Plt Count MPV Neut % (Auto) Lymph % (Auto) [place] % (Auto) Eos % (Auto) Baso % (Auto) Absolute Neuts (auto) Absolute Lymphs (auto) Sodium 137 Potassium 4.5 Chloride 102 Carbon Dioxide 24 Anion Gap 16 BUN 36 H Creatinine 0.80 Estimated GFR (MDRD) > 60 Glucose 96 Calculated Osmolality 272 Lactic Acid Calcium 9.0 Total Bilirubin 0.5 AST 26 ALT 43 Alkaline Phosphatase 83 Total Protein 7.5 Albumin 4.0 Lipase 65 Urine Color Urine Clarity Urine pH Ur Specific [place] Urine Protein Urine Glucose (UA) Urine Ketones Urine Occult Blood Urine Nitrite Urine Bilirubin Urine Urobilinogen Ur Leukocyte Esterase Urine RBC Urine WBC Urine Bacteria Hyaline Casts Urine Mucus - Additional Information discussed with Dr. Aleman who will call in verbal orders to RN regarding admission to the hospital. Pt and family aware. - Departure Yes I personally saw and evaluated the patient. Disposition: Admit IP To This Hospital Instructions: Weakness (General) Education/Counseling Given To: Patient, Family Member Referrals: None,No Provider [Primary Care Provider] - One Week Decision to Admit Time: 21:30 Decision to admit date: 10/02/16 Decision to admit: from ED - Physician Consulted Surgery Provider Called: Dr. Rohan Aleman <Electronically signed by Rudy Wang MD> 10/02/16 0750 Courtesy Copy to:~ PRIMARY CARE PHYSICIAN:NO DEFINED PROVIDER Report:[id number]
== END 2016-10-03 18:57 | disposition home or self-care (01) ==
LOC: ED 19:38 → MPS3 21:25 → INTOOBSV 21:25
PROVIDERS: ADMIT Surgery; ATTEND Surgery
DX: K31.1 Adult hypertrophic pyloric stenosis (principal); B34.9 Viral infection, unspecified; K21.9 Gastro-esophageal reflux disease without esophagitis; I10 Essential (primary) hypertension; E78.00 Pure hypercholesterolemia, unspecified; Z79.899 Other long term (current) drug therapy; Z87.891 Personal history of nicotine dependence
CPT/HCPCS: 36415; 80053; 81001; 83605; 83690; 85025; 87804; 96360; 99284; G0378; J1642

== ENCOUNTER 2016-10-04 12:37 | Emergency (ER) | payer OTHER ==
[2016-10-04 12:45] VITALS: BP 132/77; PULSE 86; TEMP 98.7; BMI 26.9
[2016-10-04] MEDS ORDERED: LIDOCAINE 2% JELLY UROJET TOP ONE (12:58)
--- NOTE | 2016-10-04 13:03 | EDPRACDOC ---
- General Information Chief Complaint: Abdominal Pain Stated Complaint: G-TUBE INSERTION Time Seen by Provider: 10/04/16 12:51 Information Source: Patient Mode of Arrival: Car Home Medications: Home Medications Lisinopril/Hydrochlorothiazide [Lisinopril-Hctz 10-12.5 mg Tab] 1 tab PO DAILY 09/21/16 Acetaminophen with Codeine [Tylenol with Codeine Elixir] 5 ml PEG Q4H PRN Allergies/Adverse Reactions: Allergies Allergy/AdvReac Type Severity Reaction Status Date / Time No Known Allergies Allergy Verified 10/02/16 20:20 - History of Present Illness Onset: today HPI: PT SENT TO ED FOR G-TUBE DISLODGEMENT, PT STATES TUBE HAS BEEN IN FOR APPROX 1 WEEK. Patient Has a Chronic/Temporary: Reports: Feeding Tube, Gastrostomy Line/Tube Is: Out Presents for Line/Tube: Replacement Associated Signs & Symptoms: Reports: None ED Past Medical History - History Reviewed Yes Nurses notes reviewed and agree except as marked Travel Outside of [place] in the Last 3 Months?: No - Patient Medical History Cardiac History: Reports: Hypertension, Hypercholesterolemia GI/ History: Reports: Gastroesophageal Reflux Psychological History: Denies: Depression - Social Medical History Smoking Status: Former smoker ETOH: None Substance Abuse: None Lives With: Spouse Lives In: Home EDM Review of Systems - Review of Systems ROS Negative Except as Marked: Yes All systems reviewed and were negative except as marked Constitutional: No Symptoms Reported. negative: Fever, Chills, Weakness, Fatigue, Loss of Appetite Eyes: No Symptoms Reported. negative: Redness, Blurred Vision, Double Vision, Discharge, Pain, Light Sensitive, Photophobia Ears: No Symptoms Reported. negative: Pain, Hearing Loss, Drainage, Ear Pulling Throat: No Symptoms Reported. negative: Pain, Swelling Nose: No Symptoms Reported. negative: Congestion, Bleeding, Discharge, Injection, Swelling, Deformity, Ecchymosis, Tender, Abrasion, Laceration Mouth: No Symptoms Reported. negative: Pain, Drooling Respiratory: No Symptoms Reported. negative: Cough, Brassy Cough, Barky Cough, Shortness of Breath, Wheezing, Hemoptysis Cardiovascular: No Symptoms Reported. negative: Chest Pain, Palpitations, Syncope, Edema, Orthopnea, PND, Skin Mottling, Cyanosis Gastrointestinal: Other (G-TUBE OUT). negative: Constipation, Diarrhea, Formula Intolerance, Melena, Nausea, Pain, Vomiting Genitourinary: No Symptoms Reported. negative: Dysuria, Hematuria, Frequency, Discharge, Bleeding, Testicular Pain, Neurological: No Symptoms Reported. negative: Headache, Dizziness, Seizure, Numbness, Weakness, Speech Difficulty, Gait Difficulty Musculoskeletal: No Symptoms Reported. negative: Neck, Chestwall, Ribs, Back, Shoulder, Arm, Elbow, Forearm, Wrist, Hand, Pelvis, Hip, Femur, Knee, Leg, Ankle , Foot Integumentary: No Symptoms Reported. negative: Itching, Rash, Bruising, Wound Allergic/Immunologic: No Symptoms Reported. negative: Hives, Itching Hematologic: No Symptoms Reported. negative: Lymphadenopathy, Easy Bruising, Easy Bleeding Endocrine: No Symptoms Reported. negative: Weight Gain, Weight Loss Psychiatric: No Symptoms Reported. negative: Anxiety, Depression, Hallucinations, Insomnia, Suicidal - Physical Exam Constitutional: No apparent distress, Alert (Awake) Oriented to: Time, Person, Place Last recorded Vital Signs: Last Vital Signs Temp 98.7 F 10/04/16 12:45 Pulse 86 10/04/16 12:45 Resp 18 10/04/16 12:45 BP 132/77 10/04/16 12:45 Pulse Ox 95 10/04/16 12:45 Oxygen Pulse Oxygen Saturation 95 O2 Device Room Air Oxygen Flow Rate Fraction of Inspired Oxygen ( FIO2) - HEENT Head: Normal ( normocephalic) Eye Exam: Normal (PERRL, EOMI, Sclera white) Oropharynx: Normal (Pharynx:Moist without exudate,Gums-no swelling) Tympanic Membrane: Normal ENT EAC: Normal TMJ: Normal Nose: No Symptoms Reported (septum midline) Neck: Normal (FROM, trachea at midline) - Respiratory/Cardiovascular Respiratory: Normal - CTA (BBS clear to auscultation without adventitious sounds ) Cardiovascular: Normal (RRR without murmur, gallop or rub) - GI Auscultation: Normal (NABS) Palpation: Normal (Soft,No rebound or guarding, non distended), Other (G-TUBE OUT) Tenderness: Non tender Wade's Sign: Negative - Bladder: Normal - Musculoskeletal Back: Normal (Non-Tender) Extremities: Normal (Normal tone, Pulses 2+ No cyanosis or edema, FROM) - Integumentary Skin: Normal, Warm, Dry Lymphatics: Normal (no adenopathy) - Neurologic Memory Impaired: Normal Motor Function: Normal (Normal tone, Pulses 2+ No cyanosis or edema, FROM) Cranial Nerve: Normal (CN II-X11 intact sensation, strength 5/5) Cerebellar: Normal Mood Description: Normal Perception: Normal ED Procedures - Feeding Tube Informed of risks, benefits and alternatives described: Yes Informed Consent Signed: Verbal Indications: Out Placement confirmed by: Exam (GASTRIC CONTENTS FROM TUBE IMMEDIATLY AFTER PLACEMENT.), Xray Feeding Tube Notes: PT TOLERATED WELL, TUBE BACK IN PLACE WITHOUT PROBLEMS. ED Tube Replacement MDM - Differential Diagnosis Differential Diagnosis: Tube malfunction, Tube dislodgement - Diagnostic Imaging KUB Image interpreted by: Radiologist Diagnostic Imaging Comments: CONTRAST BOLUS NOTED IN STOMACH. Decision Time to Discharge: 14:23 - Departure Disposition: Home Condition: Stable Final Diagnosis: G-TUBE REPLACEMENT Instructions: How to Use and Care for Your PEG Tube (ED) Education/Counseling Given To: Patient Education/Counseling Given Regarding: Diagnosis, Treatment, Prognosis, Follow Up Referrals: Rohan Aleman MD [Primary Care Provider] - One Week
--- NOTE | 2016-10-04 14:28 | DIRPT ---
CLINICAL DATA: Gastrostomy catheter placement EXAM: ABDOMEN - 1 VIEW COMPARISON: CT abdomen and pelvis September 20, 2016 FINDINGS: Contrast has been injected through a percutaneously placed gastrostomy catheter. Contrast is seen within the stomach. No contrast extravasation. Contrast flows from the stomach into the duodenum in from the duodenum into the proximal jejunum. The bowel gas pattern is unremarkable. No obstruction or free air. IMPRESSION: Gastrostomy catheter in region of stomach without contrast extravasation. No upper bowel region obstruction. Bowel gas pattern unremarkable. Electronically Signed By: Andrade Asher III, M.D. On: 10/04/2016 14:25
== END 2016-10-04 14:31 | disposition home or self-care (01) ==
LOC: EDMC 12:37
DX: K94.20 Gastrostomy complication, unspecified (principal)
CPT/HCPCS: 43760; 74000; 99282; J3490